=== PATIENT | female | born 1965 | race Caucasian/White ===

== ENCOUNTER → 2017-03-17 | Outpatient (CLI) | payer OTHER ==
--- NOTE | 2017-03-18 07:25 | MR ---
EXAMINATION TYPE: MR cervical spine wo con DATE OF EXAM: 03/17/2017 6:48 PM COMPARISON: CT cervical spine dated 10/10/2016. MR cervical spine dated 03/17/2016. HISTORY: Neck pain, headaches, bonnie hand numbness TECHNIQUE: Multiplanar, multisequence images of the cervical spine were acquired. Anterior cervical fusion has b een performed of C3-C5 in the interim with intervertebral disc spacing is normal and the previously s een disc herniations. C2-C3: No evidence for degenerative disc disease. No disc bulge/herniation or protrusion. No Canal stenosis. Foramina are patent bilaterally. C3-C5: Intervertebral discs have been removed. There is a convex contour of the posterior spinal colu mn border with no evidence of spinal canal stenosis No evidence for degenerative disc disease. No di sc bulge/herniation or protrusion. Foramina are patent bilaterally. C5-C6: Similar to the prior exam there is disc desiccation and a small central disc herniation abutti ng the ventral thecal sac creating mild spinal canal stenosis. Uncovertebral hypertrophy in the broad -based central disc herniation contributing to moderate bilateral neural foraminal stenosis. Additio cody degenerative marrow signal is unchanged from the prior. C6-C7: Degenerative endplate changes are again noted. There is redemonstration of a small central dis c herniation minimally impressing upon the ventral thecal sac creating mild spinal canal stenosis and mild bilateral neural foraminal stenosis. C7-T1: No evidence for degenerative disc disease. No disc bulge/herniation or protrusion. No Canal stenosis. Foramina are patent bilaterally. Cervical segments are intact. There is normal alignment. Mild increased T2 signal is seen at the kandi mely C3-C4 disc interspace as a result of previous disc herniation and now relating to mild myelomalac ia. Craniovertebral junction relationships are within normal limits. IMPRESSION: 1. Interval postsurgical fusion and decompression of levels C3-C5 with minimal myelomalacia remaining within the cervical cord at the [place] C3-C4 disc interspace. 2. Unchanged small central disc herniations at C5-C6 and C6-C7 with resultant mild spinal canal steno sis. 3. Multilevel uncovertebral hypertrophy creating moderate bilateral neural foraminal stenosis at C5-C 6 and mild at C6-C7.
== END | disposition home or self-care (01) ==
LOC: RADMRIMAIN 18:09
PROVIDERS: ATTEND Specialist
DX: M48.02 Spinal stenosis, cervical region (principal); M99.71 Connective tissue and disc stenosis of intervertebral foramina of cervical region; M50.022 Cervical disc disorder at C5-C6 level with myelopathy; M50.023 Cervical disc disorder at C6-C7 level with myelopathy; Z98.1 Arthrodesis status
CPT/HCPCS: 72141

== ENCOUNTER 2017-04-21 09:50 | Day surgery (SDC) | payer OTHER ==
[2017-04-19 11:53] VITALS: BMI 21.6
[~2017-04-21 09:50] MED LIST: LACTATED RINGERS 1,000 ML IV SCH
[2017-04-21 10:59] VITALS: TEMP 98.4
[2017-04-21 11:02] LABS: Glucose,Whole Blood 105 mg/dL (75-99)
[2017-04-21] MEDS ORDERED: LIDOCAINE 1% 20 ML VIAL (10MG/ML) FOR IV START INTRADERMA ONE (11:03)
[2017-04-21] MEDS ORDERED: PROPOFOL 10 MG/ML 20 ML VIAL IV ONE (11:41)
[2017-04-21] MEDS ORDERED: LIDOCAINE 1% INJ 10MG/ML (20 ML MDV) ONE (11:41)
--- NOTE | 2017-04-21 12:07 | P.PCN ---
Date of Procedure: 04/21/17 Preoperative Diagnosis: Postoperative Diagnosis: Procedure(s) Performed: BRIEF HISTORY: Patient is a 52-year-old pleasant white female, scheduled for an elective colonoscopy as a part of screening for colorectal neoplasia. PROCEDURE PERFORMED: Colonoscopy with snare polypectomy PREOPERATIVE DIAGNOSIS: Screening for colon cancer. IV sedation per Anesthesia. PROCEDURE: After informed consent was obtained, the patient, was brought into the endoscopy unit. IV sedation was administered by Anesthesia under continuous monitoring. Digital rectal examination was normal. Initially the Olympus CF- 160 flexible video colonoscope was then inserted in the rectum, gradually advanced into the cecum without any difficulty. Careful examination was performed as the scope was gradually being withdrawn. Ileocecal valve and the appendiceal orifice were visualized and appeared normal. Prep was excellent. In the base of the cecum there was a 1.5 cm broad-based polyp that was removed by snare polypectomy. Mucosa of the cecum, ascending colon appeared normal. In the hepatic flexure there was a 1 polyp removed by snare polypectomy. The rest of the transverse colon, descending colon, sigmoid colon, and rectum appeared normal. Retroflexion was performed in the rectum and no lesions were seen. The patient tolerated the procedure well. IMPRESSION: 1.5 cm broad-based cecal polyp serous was snare polypectomy 1 cm hepatic flexure polyp status post polypectomy RECOMMENDATIONS: Findings of this examination were discussed with the patient as well as a family. She was advised to follow with the biopsy results. If the biopsy shows a tubular adenoma she can have a repeat colonoscopy in 3-5 years. Implants: Indications for Procedure: Operative Findings: Description of Procedure:
[2017-04-21 12:09] VITALS: BP 105/72
[2017-04-21 12:23] VITALS: PULSE 71; RESP 18
== END 2017-04-21 12:38 | disposition home or self-care (01) ==
LOC: ORWHC2ENDO 09:50
PROVIDERS: ATTEND Internal Medicine Gastroenterology
DX: Z12.11 Encounter for screening for malignant neoplasm of colon (principal); D12.0 Benign neoplasm of cecum; D12.3 Benign neoplasm of transverse colon; E11.9 Type 2 diabetes mellitus without complications; E78.5 Hyperlipidemia, unspecified; Z79.4 Long term (current) use of insulin; Z79.84 Long term (current) use of oral hypoglycemic drugs; Z79.899 Other long term (current) drug therapy; Z88.1 Allergy status to other antibiotic agents; Z88.2 Allergy status to sulfonamides; Z72.0 Tobacco use
CPT/HCPCS: 81025; 88305; 45385; J2001; J2704

== ENCOUNTER 2017-08-22 21:47 | Emergency (ER) | payer OTHER ==
[2017-08-22 22:09] VITALS: BP 102/69; PULSE 92; RESP 18; TEMP 97.5
--- NOTE | 2017-08-22 22:32 | ED ---
General Adult HPI - General Chief complaint: Upper Respiratory Infection Stated complaint: Fatigue/Sweats/Congestion Time Seen by Provider: 08/22/17 22:12 Source: patient, RN notes reviewed Mode of arrival: ambulatory Limitations: no limitations - History of Present Illness Initial comments: 52-year-old female with history diabetes presents with a one-month history of cough and nasal congestion and nasal drainage. Patient also reports some right ear fullness. She's had a mild sore throat over this time as well. She has been using Robitussin and Sudafed with minimal relief. She was unable to see her primary care physician. Denies chest pain or significant shortness of breath. No history of asthma or COPD. No nausea vomiting or diarrhea. No rash. Patient has had some fever and chills as well as night sweats, however she believes she is going through menopause. - Related Data Home Medications Medication Instructions Recorded Confirmed Atorvastatin [Lipitor] 20 mg PO DAILY 04/19/17 08/22/17 Dapagliflozin Propanediol [Farxiga] 10 mg PO QAM 04/19/17 08/22/17 Desvenlafaxine Succinate [Pristiq] 50 mg PO DAILY 04/19/17 08/22/17 Diazepam [Valium] 2 mg PO DAILY PRN 04/19/17 08/22/17 Gabapentin [Neurontin] 100 mg PO BID 04/19/17 08/22/17 Insulin Aspart [NovoLOG] 5 units INJ TID-W/MEALS 04/19/17 08/22/17 Insulin Glargine [Lantus] 25 units INJ QAM 04/19/17 08/22/17 Linagliptin [Tradjenta] 5 mg PO QAM 04/19/17 08/22/17 Meloxicam 15 mg PO DAILY PRN 04/19/17 08/22/17 Insulin Aspart [NovoLOG] See Protocol SQ AC-TID PRN 08/22/17 08/22/17 metFORMIN HCL 1,000 mg PO BID 08/22/17 08/22/17 Previous Rx's Medication Instructions Recorded Amoxicillin/Potassium Clav 1 tab PO Q12HR #20 tab 08/22/17 [Augmentin 875-125 Tablet] Allergies Allergy/AdvReac Type Severity Reaction Status Date / Time sulfamethoxazole Allergy Rash/Hives Verified 08/22/17 22:25 [From Bactrim] trimethoprim [From Bactrim] Allergy Rash/Hives Verified 08/22/17 22:25 Review of Systems ROS Statement: Those systems with pertinent positive or pertinent negative responses have been documented in the HPI. ROS Other: All systems not noted in ROS Statement are negative. Past Medical History Past Medical History: Diabetes Mellitus, Hyperlipidemia History of Any Multi-Drug Resistant Organisms: None Reported Past Surgical History: Appendectomy, Back Surgery, Orthopedic Surgery, Tubal Ligation Past Anesthesia/Blood Transfusion Reactions: No Reported Reaction Past Psychological History: Anxiety Smoking Status: Current every day smoker Past Alcohol Use History: None Reported Past Drug Use History: None Reported - Past Family History Mother Family Medical History: No Reported History General Exam Limitations: no limitations General appearance: alert, in no apparent distress Head exam: Present: atraumatic, normocephalic Eye exam: Present: normal appearance, PERRL ENT exam: Present: normal exam, mucous membranes moist, other (Visualized portion of the right TM is within normal limits, there is significant amount of cerumen in the external canal, left TM normal. There is no pharyngeal erythema or tonsillar swelling) Neck exam: Absent: tenderness, meningismus Respiratory exam: Present: normal lung sounds bilaterally. Absent: respiratory distress, wheezes, rales, rhonchi Cardiovascular Exam: Present: regular rate, normal rhythm GI/Abdominal exam: Present: soft. Absent: distended, tenderness Extremities exam: Present: normal inspection, normal capillary refill. Absent: pedal edema Neurological exam: Present: alert, oriented X3. Absent: CN II-XII intact, motor sensory deficit Psychiatric exam: Present: normal affect, normal mood Skin exam: Present: warm, dry, intact. Absent: rash Course Vital Signs 08/22/17 22:05 Temperature 97.5 F L Pulse Rate 92 Respiratory 18 Rate Blood Pressure 102/69 O2 Sat by Pulse 98 Oximetry Medical Decision Making - Medical Decision Making 52-year-old female presenting with a one-month history of nasal congestion, sore throat and cough. Chest x-ray is obtained. There is no pneumonia or infiltrate. Patient's vital signs are stable. No pharyngeal erythema or tonsillar swelling. She does have nasal congestion. She has been using Flonase as needed. She is instructed to use this medication daily. She will be prescribed Augmentin for chronic sinusitis. Patient will follow-up with her primary care physician. Disposition Clinical Impression: Sinusitis Disposition: HOME SELF-CARE Condition: Good Instructions: Allergies (ED), Sinusitis (ED) Prescriptions: Amoxicillin/Potassium Clav [Augmentin 875-125 Tablet] 1 tab PO Q12HR #20 tab Referrals: Vladislav Pereira MD [Primary Care Provider] - 1-2 days Time of Disposition: 23:00
--- NOTE | 2017-08-22 22:44 | XR ---
EXAMINATION TYPE: XR chest 2V DATE OF EXAM: 08/22/2017 COMPARISON: NONE HISTORY: Cough TECHNIQUE: Frontal and lateral views of the chest are obtained. FINDINGS: Heart and mediastinum are normal. Lungs are clear. Diaphragm is normal. Bony thorax is int act. IMPRESSION: Normal chest
== END 2017-08-22 23:07 | disposition home or self-care (01) ==
LOC: EC 21:47
DX: J32.9 Chronic sinusitis, unspecified (principal); E11.9 Type 2 diabetes mellitus without complications; E78.5 Hyperlipidemia, unspecified; F41.9 Anxiety disorder, unspecified; F17.200 Nicotine dependence, unspecified, uncomplicated; Z79.4 Long term (current) use of insulin; Z79.1 Long term (current) use of non-steroidal anti-inflammatories (NSAID); Z79.899 Other long term (current) drug therapy; Z88.2 Allergy status to sulfonamides
CPT/HCPCS: 71020; 99283

== ENCOUNTER → 2017-10-02 | Outpatient (CLI) | payer OTHER ==
--- NOTE | 2017-10-04 08:20 | MM ---
Reason for exam: screening (asymptomatic). Last mammogram was performed 1 year and 7 months ago. Physical Findings: A clinical breast exam by your physician is recommended on an annual basis and results should be correlated with mammographic findings. MG Screening Mammo w CAD Bilateral CC and MLO view(s) were taken. Prior study comparison: March 02, 2016, bilateral MG screening mammo w CAD. The breast tissue is heterogeneously dense. This may lower the sensitivity of mammography. No significant changes when compared with prior studies. ASSESSMENT: Negative, BI-RAD 1 RECOMMENDATION: Routine screening mammogram of both breasts in 1 year.
== END | disposition home or self-care (01) ==
LOC: RADMAMWWP 16:10
PROVIDERS: ATTEND Family Medicine
DX: Z12.31 Encounter for screening mammogram for malignant neoplasm of breast (principal)

== ENCOUNTER → 2018-08-24 | Outpatient (CLI) | payer OTHER | END | disposition home or self-care (01) | LOC: LABWHC1 10:24 | PROVIDERS: ATTEND Internal Medicine | DX: E11.65 Type 2 diabetes mellitus with hyperglycemia (principal) | CPT/HCPCS: 36415; 82947; 84681 ==

== ENCOUNTER 2018-10-07 19:03 | Emergency (ER) | payer OTHER ==
[2018-10-07 19:06] VITALS: BP 139/87; PULSE 88; RESP 20; TEMP 98.4
--- NOTE | 2018-10-07 19:29 | ED ---
General Adult HPI - General Chief complaint: Recheck/Abnormal Lab/Rx Stated complaint: Facial Swelling Time Seen by Provider: 10/07/18 19:15 Source: patient Mode of arrival: ambulatory Limitations: no limitations - History of Present Illness Initial comments: 53-year-old female presenting with left facial swelling that began today. - Related Data Home Medications Medication Instructions Recorded Confirmed Atorvastatin [Lipitor] 20 mg PO DAILY 04/19/17 08/22/17 Dapagliflozin Propanediol [Farxiga] 10 mg PO QAM 04/19/17 08/22/17 Desvenlafaxine Succinate [Pristiq] 50 mg PO DAILY 04/19/17 08/22/17 Diazepam [Valium] 2 mg PO DAILY PRN 04/19/17 08/22/17 Gabapentin [Neurontin] 100 mg PO BID 04/19/17 08/22/17 Insulin Aspart [NovoLOG] 5 units INJ TID-W/MEALS 04/19/17 08/22/17 Insulin Glargine [Lantus] 25 units INJ QAM 04/19/17 08/22/17 Linagliptin [Tradjenta] 5 mg PO QAM 04/19/17 08/22/17 Meloxicam 15 mg PO DAILY PRN 04/19/17 08/22/17 Insulin Aspart [NovoLOG] See Protocol SQ AC-TID PRN 08/22/17 08/22/17 metFORMIN HCL 1,000 mg PO BID 08/22/17 08/22/17 Previous Rx's Medication Instructions Recorded Amoxicillin/Potassium Clav 1 tab PO Q12HR #20 tab 08/22/17 [Augmentin 875-125 Tablet] Penicillin V Potassium [Pen Vee K] 500 mg PO Q6HR 7 Days #28 tablet 10/07/18 Allergies Allergy/AdvReac Type Severity Reaction Status Date / Time sulfamethoxazole Allergy Rash/Hives Verified 10/07/18 19:06 [From Bactrim] trimethoprim [From Bactrim] Allergy Rash/Hives Verified 10/07/18 19:06 Review of Systems ROS Statement: Those systems with pertinent positive or pertinent negative responses have been documented in the HPI. ROS Other: All systems not noted in ROS Statement are negative. Past Medical History Past Medical History: Diabetes Mellitus, Hyperlipidemia History of Any Multi-Drug Resistant Organisms: None Reported Past Surgical History: Appendectomy, Back Surgery, Orthopedic Surgery, Tubal Ligation Past Anesthesia/Blood Transfusion Reactions: No Reported Reaction Past Psychological History: Anxiety Smoking Status: Current every day smoker Past Alcohol Use History: None Reported Past Drug Use History: None Reported - Past Family History Mother Family Medical History: No Reported History General Exam Limitations: no limitations Course Vital Signs 10/07/18 19:04 Temperature 98.4 F Pulse Rate 88 Respiratory 20 Rate Blood Pressure 139/87 O2 Sat by Pulse 99 Oximetry Disposition Clinical Impression: Left facial swelling Disposition: HOME SELF-CARE Condition: Good Instructions: Parotid Duct Obstruction (ED), Sialoadenitis (ED), Gingivostomatitis (ED) Prescriptions: Penicillin V Potassium [Pen Vee K] 500 mg PO Q6HR 7 Days #28 tablet Is patient prescribed a controlled substance at d/c from ED?: No
== END 2018-10-07 19:36 | disposition home or self-care (01) ==
LOC: EC 19:03
DX: R22.0 Localized swelling, mass and lump, head (principal); K08.89 Other specified disorders of teeth and supporting structures; E11.9 Type 2 diabetes mellitus without complications; E78.5 Hyperlipidemia, unspecified; F41.9 Anxiety disorder, unspecified; F17.200 Nicotine dependence, unspecified, uncomplicated; Z90.49 Acquired absence of other specified parts of digestive tract; Z98.51 Tubal ligation status; Z98.890 Other specified postprocedural states; Z79.4 Long term (current) use of insulin; Z79.899 Other long term (current) drug therapy
CPT/HCPCS: 99283

== ENCOUNTER → 2019-02-11 | Outpatient (CLI) | payer OTHER ==
--- NOTE | 2019-02-11 14:39 | XR ---
EXAMINATION TYPE: XR chest 2V DATE OF EXAM: 02/11/2019 COMPARISON: 08/22/2017 HISTORY: Cough TECHNIQUE: Frontal and lateral views of the chest are obtained. FINDINGS: There is no focal air space opacity, pleural effusion, or pneumothorax seen. Minimal linea r density is seen along the bronchus intermedius. The cardiac silhouette size is within normal limits . The osseous structures are intact. IMPRESSION: Minimal linear peribronchial cuffing along the bronchus intermedius can be seen in bronc hitis or reactive airway disease.
== END | disposition home or self-care (01) ==
LOC: RADXRMAIN 14:11
PROVIDERS: ATTEND Physician Assistant
DX: J98.09 Other diseases of bronchus, not elsewhere classified (principal)
CPT/HCPCS: 71046

== ENCOUNTER 2019-03-09 09:01 | Emergency (ER) | payer OTHER ==
[2019-03-09 09:07] VITALS: BP 138/84; PULSE 71; RESP 18; TEMP 98
[2019-03-09] MEDS ORDERED: HYDROcodone/APAP 5-325MG 1 EACH TAB PO STA (09:19)
[2019-03-09] MEDS ORDERED: CYCLOBENZAPRINE 5 MG TAB PO STA (09:19)
--- NOTE | 2019-03-09 09:27 | ED ---
Neck Injury/Pain HPI - General Chief Complaint: Neck Pain/Injury Stated Complaint: shoulder/neck pain Time Seen by Provider: 03/09/19 09:08 Source: patient, RN notes reviewed Mode of arrival: ambulatory Limitations: no limitations - History of Present Illness Initial Comments: 54-year-old female presents emergency room chief complaint of left shoulder, neck discomfort. Patient states she woke up on with some discomfort the top of her shoulder. Patient states is worse with movement. Patient's had prior cervical surgery but states that she's had no trauma. Patient states she does smoke daily neck states it's worse when she does get relief with stretching and heat but does not resolve. Patient was seen at [facility] and was given steroids. Patient states that steroids have no elevated blood sugar which is a known diabetic. Patient states that she does have an uncontrolled this time. Patient denies any focal weakness. Denies any paresthesias. Denies any trauma no fever or chills. - Related Data Home Medications Medication Instructions Recorded Confirmed Atorvastatin [Lipitor] 20 mg PO DAILY 04/19/17 08/22/17 Dapagliflozin Propanediol [Farxiga] 10 mg PO QAM 04/19/17 08/22/17 Desvenlafaxine Succinate [Pristiq] 50 mg PO DAILY 04/19/17 08/22/17 Diazepam [Valium] 2 mg PO DAILY PRN 04/19/17 08/22/17 Gabapentin [Neurontin] 100 mg PO BID 04/19/17 08/22/17 Insulin Aspart [NovoLOG] 5 units INJ TID-W/MEALS 04/19/17 08/22/17 Insulin Glargine [Lantus] 25 units INJ QAM 04/19/17 08/22/17 Linagliptin [Tradjenta] 5 mg PO QAM 04/19/17 08/22/17 Meloxicam 15 mg PO DAILY PRN 04/19/17 08/22/17 INSULIN ASPART (NovoLOG) [NovoLOG] See Protocol SQ AC-TID PRN 08/22/17 08/22/17 metFORMIN HCL 1,000 mg PO BID 08/22/17 08/22/17 Previous Rx's Medication Instructions Recorded Amoxicillin/Potassium Clav 1 tab PO Q12HR #20 tab 08/22/17 [Augmentin 875-125 Tablet] Penicillin V Potassium [Pen Vee K] 500 mg PO Q6HR 7 Days #28 tablet 10/07/18 Cyclobenzaprine [Flexeril] 5 mg PO TID PRN #15 tablet 03/09/19 Hydrocodone/Acetaminophen [[place] 1 tab PO Q6HR PRN #12 tab 03/09/19 5-325] Allergies Allergy/AdvReac Type Severity Reaction Status Date / Time sulfamethoxazole Allergy Rash/Hives Verified 03/09/19 09:07 [From Bactrim] trimethoprim [From Bactrim] Allergy Rash/Hives Verified 03/09/19 09:07 Review of Systems ROS Statement: Those systems with pertinent positive or pertinent negative responses have been documented in the HPI. ROS Other: All systems not noted in ROS Statement are negative. Past Medical History Past Medical History: Diabetes Mellitus, Hyperlipidemia History of Any Multi-Drug Resistant Organisms: None Reported Past Surgical History: Appendectomy, Back Surgery, Orthopedic Surgery, Tubal Ligation Past Anesthesia/Blood Transfusion Reactions: No Reported Reaction Past Psychological History: Anxiety Smoking Status: Current every day smoker Past Alcohol Use History: None Reported Past Drug Use History: None Reported - Past Family History Mother Family Medical History: No Reported History General Exam Limitations: no limitations General appearance: alert, in no apparent distress Head exam: Present: atraumatic, normocephalic, normal inspection Eye exam: Present: normal appearance, PERRL, EOMI. Absent: scleral icterus, conjunctival injection, periorbital swelling ENT exam: Present: normal exam, normal oropharynx, mucous membranes moist, TM's normal bilaterally, normal external ear exam Neck exam: Present: tenderness (Tenderness over the left trapezius region no cervical paraspinal or vertebral tenderness), full ROM. Absent: normal inspection (Anterior scar noted), meningismus, lymphadenopathy Respiratory exam: Present: normal lung sounds bilaterally. Absent: respiratory distress, wheezes, rales, rhonchi, stridor Cardiovascular Exam: Present: regular rate, normal rhythm, normal heart sounds. Absent: systolic murmur, diastolic murmur, rubs, gallop, clicks GI/Abdominal exam: Present: soft, normal bowel sounds. Absent: distended, tenderness, guarding, rebound, rigid Neurological exam: Present: alert, oriented X3, CN II-XII intact, reflexes normal. Absent: motor sensory deficit Skin exam: Present: warm, dry, intact, normal color. Absent: rash Course Vital Signs 03/09/19 09:04 Temperature 98.0 F Pulse Rate 71 Respiratory 18 Rate Blood Pressure 138/84 O2 Sat by Pulse 98 Oximetry Medical Decision Making - Medical Decision Making 54-year-old female presented for cervical, shoulder pain. Patient has muscle spasm noted of the left trapezius region. Patient we given pain medication, muscle relaxer. Patient will follow-up with her private surgeon. Return parameters discussed. Disposition Clinical Impression: Trapezius muscle spasm Disposition: HOME SELF-CARE Condition: Stable Instructions (If sedation given, give patient instructions): Spasmodic Torticollis (ED), Muscle Spasm (ED) Additional Instructions: Please return to the Emergency Department if symptoms worsen or any other concerns. Prescriptions: Cyclobenzaprine [Flexeril] 5 mg PO TID PRN #15 tablet PRN Reason: Muscle Spasm Hydrocodone/Acetaminophen [[place] 5-325] 1 tab PO Q6HR PRN #12 tab PRN Reason: Pain Is patient prescribed a controlled substance at d/c from ED?: Yes When asked, does pt state using other controlled substances?: Yes If prescribed controlled substance>3 days was MAPS reviewed?: Prescribed <3 Days If opioid is for acute pain is fill amount 7 days or less?: Yes If Rx opioid, was Start Talking consent form obtained?: Yes Referrals: Joao Byrd MD [Primary Care Provider] - 1-2 days Time of Disposition: :27
== END 2019-03-09 10:04 | disposition home or self-care (01) ==
LOC: EC 09:01
DX: M62.838 Other muscle spasm (principal); E11.9 Type 2 diabetes mellitus without complications; E78.5 Hyperlipidemia, unspecified; F17.200 Nicotine dependence, unspecified, uncomplicated; Z88.2 Allergy status to sulfonamides; Z79.4 Long term (current) use of insulin; Z79.899 Other long term (current) drug therapy; Z98.890 Other specified postprocedural states
CPT/HCPCS: 99283

== ENCOUNTER → 2019-03-22 | Outpatient (CLI) | payer OTHER ==
[2019-03-22 16:20] LABS: Albumin 4.2 g/dL (3.80-4.90); Albumin/Globulin Ratio 2.33 (1.60-3.17); Anion Gap 5.6 mmol/L (4.00-12.00); Calcium 9.2 mg/dL (8.7-10.3); Carbon Dioxide 27.4 mmol/L (21.6-31.8); Globulin 1.8 g/dL (1.6-3.3); LDL Cholesterol,Calculated 131.6 mg/dL (0.0-131.0); Potassium 4.5 mmol/L (3.5-5.5); Total Bilirubin 0.4 mg/dL (0.2-1.2); VLDL Calculation 22.4 mg/dL (5.00-40.00)
[2019-03-22 18:50] LABS: Hemoglobin A1C 8.8 % (4.0-6.0)
== END | disposition home or self-care (01) ==
LOC: LABWHC1 10:24
PROVIDERS: ATTEND Internal Medicine
DX: E10.65 Type 1 diabetes mellitus with hyperglycemia (principal); E78.5 Hyperlipidemia, unspecified
CPT/HCPCS: 36415; 80053; 80061; 82043; 82570; 83036

== ENCOUNTER → 2019-05-13 | Outpatient (CLI) | payer OTHER ==
--- NOTE | 2019-05-13 11:14 | XR ---
EXAMINATION TYPE: XR wrist complete LT DATE OF EXAM: 05/13/2019 COMPARISON: NONE HISTORY: 54-year-old female with left wrist pain TECHNIQUE: 4 views FINDINGS: Midcarpal compartment is intact. Ossific density interposed at the ulnar carpal joint measuring 3 mm. There is an additional curvilinear density measuring 2 mm along the ulnar-sided base of the styloid process. Otherwise, no acute fracture, subluxation, or dislocation. IMPRESSION: 1. 3 mm ossicle interposed at the ulnocarpal joint could represent an accessory ossicle or chronic un united fracture fragment as a sequela of remote injury. 2. Additional 2 mm bony fragment adjacent to the ulnar-sided base of the styloid process. Suspected s ubacute to chronic chip fracture.
== END | disposition home or self-care (01) ==
LOC: RADXRMAIN 10:13
PROVIDERS: ATTEND Internal Medicine
DX: M25.532 Pain in left wrist (principal)

== ENCOUNTER → 2019-06-27 | Outpatient (CLI) | payer OTHER ==
[2019-06-27 11:48] VITALS: BP 116/70; PULSE 66; RESP 16
--- NOTE | 2019-06-27 12:19 | P.PAINCN ---
History of Present Illness - Reason for Consult Consult date: 06/27/19 - History of Present Illness This is initial consultation visit for this 54 years old female with a chronic history of severe neck pain with radiation to the upper extremity associated with numbness and tingling sensation, mainly to the left upper extremity, and to the left hand, and occasional weakness in her left upper extremity, patient reported that she had cervical fusion surgery done in 2015, at C3-4, C4 5, she did fairly well after the surgery until recently, in February 2019 she started having the symptoms described above, she denies any fever or night sweats she denies any change in the bowel movements or urination, and currently she is able to use her upper extremity without any difficulty but the intensity of the pain and the numbness, interfering with the quality of life, she has done physical therapy without any significant benefit Past Medical History Past Medical History: Diabetes Mellitus, Hyperlipidemia Additional Past Medical History / Comment(s): left arm pain w/left hand numbness History of Any Multi-Drug Resistant Organisms: None Reported Past Surgical History: Appendectomy, Back Surgery, Tubal Ligation Additional Past Surgical History / Comment(s): cervical fusion level 2,3,4 Past Anesthesia/Blood Transfusion Reactions: No Reported Reaction Smoking Status: Current every day smoker - Past Family History Mother Family Medical History: No Reported History Medications and Allergies Home Medications Medication Instructions Recorded Confirmed Type Ibuprofen [Motrin] 800 mg PO TID PRN 06/25/19 06/25/19 History Insulin Lispro [Admelog] 1 dose SQ CONTINUOUS 06/25/19 06/25/19 History tiZANidine HCL [Zanaflex] 4 mg PO BID PRN 06/25/19 06/25/19 History Allergies Allergy/AdvReac Type Severity Reaction Status Date / Time Penicillins Allergy Rash/Hives Verified 06/25/19 11:30 shellfish derived [Shellfish] Allergy Swelling Verified 06/25/19 11:29 sulfamethoxazole Allergy Rash/Hives Verified 06/25/19 11:29 [From Bactrim] trimethoprim [From Bactrim] Allergy Rash/Hives Verified 06/25/19 11:29 Physical Exam Vitals: Vital Signs Pulse Resp BP Pulse Ox 06/27/19 11:38 66 16 116/70 98 REVIEW OF ORGAN SYSTEMS: CONSTITUTIONAL: No fevers or chills. No recent weight loss. EYES: History of troubles with vision. No glasses. HEENT: No difficulties with hearing. No nosebleeds. No di fficulty swallowing. RESPIRATORY: Past pneumonia. Denies any troubles with breathing or dyspnea on exertion. CARDIOVASCULAR: Denies any chest pain, palpitations, or recent heart attacks. GASTROINTESTINAL: Denies fatty food intolerance. Has change in bowel habits and gas bloat. GENITOURINARY: Denies any blood in urine. Has increased urinary frequency. NEUROLOGICAL: Reports numbness and tingling along the distal extremities. No seizure disorders or headaches. MUSCULOSKELETAL: Has back pain, stiffness or joint arthritis. SKIN: Past t skin cancer. No rash. PSYCHIATRIC: Denies current depression or suicidal tho ughts. ENDOCRINE: Denies current thyroid disorders. Had insulin dependent. Assessment. HEME/LYMPHATIC: Denies any lumps and bumps around the neck. History of deep venous thrombosis. ALLERGY/IMMUNOLOGY: No immunoglobulin therapy. No immune deficiencies. BREAST: Denies current breast lumps, pain or nipple di scharge. Physical Examinations : Constitutiona : Cooperative , not in acute distress . HEENT : nech : supple , no Lymphadenopathy , normal thyroid size . eyes : no ptosis , no icterus, no photophobia . ENT : normal of hearing , normal oropharynx , no Thrush . Respiratory : Chest clear to auscultations Bilaterally , no wheezing , no Rhonchi . Cardiovascula : regular rate and rhythem , S1 , S2 , no S3 , no S4. Gastrointestina : abdomen soft no tenderness , bowel sounds , no organomegally . Genitourinary : Defferred . neurologic : Cranial nerve II to XII intact , no focal neurological deffecit . psychatric : alert , oriented X 3 , appropriate affect , intact judgment and insight . Lymphatic : no Lymphadenopathy . musculoskeltal : Cervical Spine motor stregnth in the deltoid and biceps, normal right side , normal Left side motor stregnth biceps and the wrist extensors normal right side ,normal left side . motor stregnth in the triceps muscle . normal Right side , normal Left side Severe tenderness over the left trapezius muscle deep tendon reflexes normal at the biceps , normal at Brachioradialis , normal at triceps. cervical facet loading test: Positive Bilaterally Spurling test positive bilaterally. Neck distraction test positive bilaterally. Nancy sign positive bilaterally. Lumber spine moter stegnth lower extremities ,thigh and legs 5/5 Right side , 5/5 Left side Results Labs: Assessment and plan=1-cervical radiculopathy. 2-cervical herniated disc disease. 3-myofascial pain syndrome left side trapezius muscle. Patient could benefit from cervical epidural steroid injection at C7-T1 levels under fluoroscopy guidance, and the same time we can do trigger point injection of the left trapezius muscle Comments: MRI of the cervical spine done 03/18/2017 [facility]= C3 to C5 cervical fusion and there is disc herniation at C5 6 and C6 7 and there is foraminal stenosis, and multilevel lumbar facet hypertrophy PQRS Measure Charge Sheet Measure #130: Documentation of Current Meds in Medical Chart: Patient's medications documented in chart Measure #226: Tobacco Use: Screen & Cessation Intervention: Pt screened for tobacco use AND intervention given Measure #111: Pneumonia Vaccination: Pneumococcal vaccine NOT administered or previously given Measure #47: Advance Care Plan: Advance care planning discussed & documented, pt chose/unable to give Measure #412: Opioid Treatment Agreement: No documentation of signed opioid treatment agreement Measure #408: Opioid Therapy Follow-up Evaluation: Patient had NO f/u eval minimum every 3 months during opioid therapy Measure #317: Preventitive Care & Scrn High Bld Press & F/U: Normal blood pressure, f/u not required Measure #128: Body Mass Index (BMI) Screening & Follow-up: BMI documented within normal parameters Measure #131: Pain Assessment & Follow-up: Pain positive & plan documented, Follow-up scheduled Measure #431: Unhealthy Alcohol Use Preventative Care & Scrn: Patient identified as unhealthy alcohol user; counseling given PQRS Narrative: Smoking Status Current every day smoker Blood Pressure 116/70 Pain Intensity [Left Arm] 8 Scale Used Numeric (1 - 10) Hx Alcohol Use (MH) No Home Medications: Ambulatory Orders Ibuprofen [Motrin] 800 mg PO TID PRN 06/25/19 Insulin Lispro [Admelog] 1 dose SQ CONTINUOUS 06/25/19 tiZANidine HCL [Zanaflex] 4 mg PO BID PRN 06/25/19
== END ==
LOC: PNWHC3 11:29
PROVIDERS: ATTEND Specialist
DX: M50.10 Cervical disc disorder with radiculopathy, unspecified cervical region (principal); M79.18 Myalgia, other site; F17.200 Nicotine dependence, unspecified, uncomplicated; Z79.1 Long term (current) use of non-steroidal anti-inflammatories (NSAID); Z79.4 Long term (current) use of insulin; Z79.899 Other long term (current) drug therapy; Z88.0 Allergy status to penicillin; Z88.2 Allergy status to sulfonamides; Z91.013 Allergy to seafood
CPT/HCPCS: 99211

== ENCOUNTER 2019-07-04 06:50 | Day surgery (SDC) | payer OTHER ==
[2019-07-02 11:57] VITALS: BMI 22.7
[2019-07-04 07:19] VITALS: TEMP 97
[2019-07-04] MEDS: LACTATED RINGERS 1,000 ML IV SCH ×2 (07:29→07:34)
[2019-07-04 07:32] LABS: Glucose,Whole Blood 149 mg/dL (75-99)
[2019-07-04 07:59] VITALS: RESP 18
[2019-07-04] MEDS ORDERED: IV FLUID CONTINUATION 1,000 ML IV ONE (08:06)
--- NOTE | 2019-07-04 08:07 | FL ---
EXAMINATION TYPE: FL guided pain mgmt statistic DATE OF EXAM: 07/04/2019 CLINICAL HISTORY: Back pain. TECHNIQUE: Fluoroscopy. COMPARISON: None. FINDINGS: Fluoroscopic guidance was provided during pain relief procedure performed by Dr. Varner . A total of 3 seconds of fluoroscopic time was utilized during the procedure and 2 spot images are acquired. Images acquired shows needle localization of the cervical spine. IMPRESSION: As Above.
[2019-07-04 08:16] VITALS: BP 123/67; PULSE 67
== END 2019-07-04 08:28 | disposition home or self-care (01) ==
LOC: ORPAIN 06:50
PROVIDERS: ATTEND Specialist
DX: M50.30 Other cervical disc degeneration, unspecified cervical region (principal); M79.18 Myalgia, other site; Z79.4 Long term (current) use of insulin; Z96.41 Presence of insulin pump (external) (internal); Z98.51 Tubal ligation status; Z88.2 Allergy status to sulfonamides; Z88.0 Allergy status to penicillin; Z91.013 Allergy to seafood
CPT/HCPCS: 20552; 62321; J2250; J1100; J3010

== ENCOUNTER 2019-07-31 08:46 | Day surgery (SDC) | payer OTHER ==
[2019-07-31 09:19] VITALS: TEMP 97.4
[2019-07-31] MEDS ORDERED: LIDOCAINE 1% 20 ML VIAL (10MG/ML) FOR IV START INTRADERMA ONE (09:25)
[2019-07-31 09:34] LABS: Glucose,Whole Blood 115 mg/dL (75-99)
[2019-07-31] MEDS ORDERED: IV FLUID CONTINUATION 1,000 ML IV ONE (09:59)
[2019-07-31 10:02] VITALS: PULSE 62; RESP 16
[2019-07-31 10:13] LABS: Glucose,Whole Blood 107 mg/dL (75-99)
[2019-07-31 10:17] VITALS: BP 97/58
--- NOTE | 2019-07-31 11:03 | FL ---
EXAMINATION TYPE: FL guided pain mgmt statistic DATE OF EXAM: 07/31/2019 CLINICAL HISTORY: Neck pain. TECHNIQUE: Fluoroscopy. COMPARISON: None. FINDINGS: Fluoroscopic guidance was provided during pain relief procedure performed by Dr. Kevin . A total of 2 seconds of fluoroscopic time was utilized during the procedure and 1 spot image are acq uired. Image acquired shows needle localization at the cervical thoracic junction. IMPRESSION: As Above.
--- NOTE | 2019-07-31 11:57 | P.PCN ---
Date of Procedure: 07/31/19 Description of Procedure: PREOPERATIVE DIAGNOSIS: Cervical radiculopathy Cervical degenerative disc disease POSTOPERATIVE DIAGNOSIS: Cervical radiculopathy Cervical degenerative disc disease PROCEDURE Cervical Epidural steroid injection under fluoroscopic guidance at the C7-T1 interspace. ANESTHESIA: Local with 1% lidocaine 3 ml and IV sedation with Versed 2 mg EBL: Minimal PROCEDURE INDICATION: The patient with cervical radicular symptoms unresponsive to conservative treatment. She reports good benefit from her last cervical epidural steroid injection. PROCEDURE DESCRIPTION / TECHNIQUE: The patient was seen and identified in the preoperative area. Risks, benefits, complications including but not limited to infections ,bleeding ,allergic reaction to the medications ,nerve damage and incomplete pain relief, and alternatives were discussed with the patient. The patient agreed to proceed with the procedure and signed the consent. IV was started, and vital signs were stable. Patient was taken to the OR and time out was completed. The patient was placed in the prone position on procedure table and a pillow was placed under the chest area.. The cervical area was prepped and draped in the usual sterile fashion. Conscious sedation was used during the procedure to decrease patients anxiety. Vital signs was monitered during the entire procedure. Using anterior-posterior fluoroscopy, the C7-T1 interlaminar space was identified and the skin over this site was marked and then infiltrated with 1% lidocaine subcutaneously. Subsequently, a 20-gauge Tuohy epidural needle was inserted and advanced toward the epidural space using the loss of resistance technique and guided by AP and lateral fluoroscopy. The correct needle position in the epidural space was verified with the injection of contrast and observing an excellent epidurogram with the epidural spread of the dye, after negative aspiration for blood and CSF and in the absence of paresthesias. Again after negative aspiration, a 4 ml mixture containing 20 mg of Dexamethasone was injected. Needle was withdrawn intact, skin was cleansed, and bandages were applied. COMPLICATIONS: None DISPOSITION / PLANS: The patient was placed in a supine position and transferred to the recovery area in a stable condition for observation. There was no evidence of lower extremity motor or sensory deficit after the procedure. Patient was discharged from the recovery room after meeting discharge criteria. Home discharge instructions were given to the patient by the staff. The patient was reexamined prior to discharge. The patient will schedule a follow up in the clinic in 2-4 weeks.
== END 2019-07-31 10:24 | disposition home or self-care (01) ==
LOC: ORPAIN 08:46
PROVIDERS: ATTEND Pain Medicine Pain Medicine
DX: M50.10 Cervical disc disorder with radiculopathy, unspecified cervical region (principal); E11.9 Type 2 diabetes mellitus without complications; Z88.2 Allergy status to sulfonamides; Z88.0 Allergy status to penicillin; Z91.013 Allergy to seafood; Z91.048 Other nonmedicinal substance allergy status; Z98.51 Tubal ligation status
CPT/HCPCS: 62321; J2250; J1030; J3010

== ENCOUNTER → 2019-08-28 | Outpatient (CLI) | payer OTHER ==
[2019-08-28 21:56] LABS: Hemoglobin A1C 8.8 % (4.0-6.0)
== END | disposition home or self-care (01) ==
LOC: LABWHC1 12:34
PROVIDERS: ATTEND Internal Medicine
DX: E10.65 Type 1 diabetes mellitus with hyperglycemia (principal)
CPT/HCPCS: 36415; 83036

== ENCOUNTER 2019-12-13 10:53 | Day surgery (SDC) | payer OTHER ==
[2019-12-09 14:33] VITALS: BMI 24.2
[~2019-12-13 10:53] MED LIST changes: +DEXAMETHASONE SOD PHOSPHATE 10 MG/ML 1 ML VIAL IV ONE; +HYDROmorphone 0.5 MG/0.5 ML SYRINGE IVP PRN; +LIDOCAINE 1% 20 ML VIAL (10MG/ML) FOR IV START INTRADERMA PRN; +Pre Op ABX Message 1 EACH MISC MISCELLANE ONE
[2019-12-13] MEDS: ONDANSETRON 4 MG/2 ML VIAL IVP ONE ×2 (11:45→11:52)
[2019-12-13 11:57] LABS: Glucose,Whole Blood 106 mg/dL (75-99)
[2019-12-13 11:59] VITALS: RESP 16; TEMP 98.2
[2019-12-13 13:34] LABS: Glucose,Whole Blood 67 mg/dL (75-99)
[2019-12-13] MEDS ORDERED: fentaNYL (PF) 50 MCG/ML 2 ML AMP ONE (13:53)
[2019-12-13] MEDS ORDERED: PROPOFOL 10 MG/ML 20 ML VIAL IV ONE (13:53)
[2019-12-13] MEDS ORDERED: KETAMINE 10 MG/ML 20 ML VIAL ONE (13:53)
[2019-12-13] MEDS ORDERED: MIDAZOLAM 2 MG/2 ML VIAL ONE (13:53)
[2019-12-13 14:14] LABS: Glucose,Whole Blood 135 mg/dL (75-99)
[2019-12-13] MEDS ORDERED: BUPIVACAINE (PF) 0.5% 30 ML VIAL SQ ONE (14:19)
[2019-12-13] MEDS ORDERED: LIDOCAINE 2% (PF) 20 MG/ML 10 ML AMP SQ ONE (14:19)
[2019-12-13] MEDS ORDERED: LIDOCAINE 1%-EPI 1:100,000 20 ML VIAL SQ ONE ×2 (14:20)
[2019-12-13 14:30] LABS: Glucose,Whole Blood 121 mg/dL (75-99)
[2019-12-13 15:09] LABS: Glucose,Whole Blood 124 mg/dL (75-99)
[2019-12-13 15:15] VITALS: BP 106/59; PULSE 80
--- NOTE | 2019-12-19 19:32 | P.OP ---
Date of Procedure: 12/13/19 Preoperative Diagnosis: 1. Right de Quervain's tenosynovitis 2. Right wrist ganglion cyst Postoperative Diagnosis: 1. Right de Quervain's tenosynovitis 2. Right wrist ganglion cyst Procedure(s) Performed: 1. First dorsal compartment release - right wrist 2. Excision of ganglion cyst - right wrist Anesthesia: MAC, local Surgeon: Luis Merino Estimated Blood Loss (ml): 1 Pathology: none sent Condition: stable Disposition: same day Indications for Procedure: The patient is a 54-year-old female who was diagnosed with de Quervains tenosynovitis of the right wrist with an associated ganglion cyst. Treatment options (and associated risks and benefits) were discussed in the office. The patient expressed understanding and elected surgery treatment. Consent forms were signed. The surgical site was confirmed and marked preoperatively. Description of Procedure: The patient was brought to the operative suite and positioned supine with the operative limb on a hand table. A tourniquet was placed on the right arm. Anesthesia was administered uneventfully. A time-out was performed, confirming patient identifiers, the operative side, the site and the procedures to be performed: all team members expressed agreement. Using aseptic technique, local anesthetic was injected into the subcutaneous tissues around the planned incision. The right upper extremity was then prepped and draped in standard, sterile fashion. The limb was exsanguinated with an Esmarch and the tourniquet was inflated. Loupe magnification was utilized throughout the case for optimal visualization. A chevron incision was marked over the radial styloid. The skin was sharply incised. Blunt spreading dissection was used to expose the extensor retinaculum. Several small branches of the superficial radial sensory nerve were identified within the surgical field: These were carefully mobilized and protected throughout the case. The first dorsal compartment was identified. The cyst was visualized on the surface of the extensor retinaculum. The outcropper tendons were identified just distal to the extensor retinaculum. The first dorsal compartment was sharply released along its most dorsal aspect to prevent subluxation of the tendons. The retinaculum overlying the compartment was quite thickened. The tendons showed no fraying or attritional wear. A thin subsheath around the extensor pollicis brevis tendon was identified and released. A small amount of thickened tenosynovial tissue was identified between the tendons; this was carefully resected with a rongeur. The portion of the retinaculum containing the cyst was sharply excised in elliptical fashion and removed. To prevent volar subluxation, the retinaculum was loosely repaired over the tendons using [id number] sutures of 4-0 Monocryl. Passive motion testing was performed after repair: There was no tethering or restriction of tendon gliding. The tourniquet was released after 18 minutes at 250 mmHg. Excellent hemostasis was obtained with manual pressure. The wound was thoroughly irrigated with normal saline. The incision was closed with interrupted 5-0 nylon sutures. Additional local anesthetic with epinephrine was injected for postoperative pain control and adjunctive hemostasis. A sterile dressing was applied, followed by a short arm volar plaster splint. All sponge, needle and instrument counts were correct at the end of the case. The patient tolerated the procedure well and was taken to the recovery room in stable condition.
== END 2019-12-13 15:29 | disposition home or self-care (01) ==
LOC: OR 10:53
PROVIDERS: ATTEND Orthopaedic Surgery
DX: M65.4 Radial styloid tenosynovitis [de Quervain] (principal); M67.431 Ganglion, right wrist; E11.9 Type 2 diabetes mellitus without complications; F17.210 Nicotine dependence, cigarettes, uncomplicated; Z79.4 Long term (current) use of insulin; Z79.1 Long term (current) use of non-steroidal anti-inflammatories (NSAID); Z79.899 Other long term (current) drug therapy; Z88.0 Allergy status to penicillin; Z88.2 Allergy status to sulfonamides; Z91.013 Allergy to seafood; Z98.1 Arthrodesis status; Z96.41 Presence of insulin pump (external) (internal)
CPT/HCPCS: 25111; 25000; J2250; J2001; J2405; J3010; J2704

== ENCOUNTER → 2019-12-20 | Outpatient (CLI) | payer OTHER ==
[2019-12-20 16:42] LABS: Chol/HDL Ratio 3.2; LDL Cholesterol,Calculated 145.2 mg/dL (0.0-131.0); VLDL Calculation 28.8 mg/dL (5.00-40.00)
[2019-12-20 17:31] LABS: Hemoglobin A1C 8.5 % (4.0-6.0); Urine Creatinine 20.3 mg/dL
== END | disposition home or self-care (01) ==
LOC: LABWHC1 11:21
PROVIDERS: ATTEND Internal Medicine
DX: E10.65 Type 1 diabetes mellitus with hyperglycemia (principal)
CPT/HCPCS: 36415; 80061; 82043; 82570; 83036

== ENCOUNTER → 2020-04-24 | Outpatient (CLI) | payer OTHER ==
[2020-04-24 23:56] LABS: Hemoglobin A1C 7.7 % (4.0-6.0)
== END | disposition home or self-care (01) ==
LOC: LABWHC1 12:19
PROVIDERS: ATTEND Internal Medicine
DX: E10.65 Type 1 diabetes mellitus with hyperglycemia (principal)
CPT/HCPCS: 36415; 83036

== ENCOUNTER 2020-06-27 09:34 | Emergency (ER) | payer OTHER ==
[2020-06-27 09:38] VITALS: RESP 16
[2020-06-27] MEDS ORDERED: ONDANSETRON 4 MG/2 ML VIAL IVP STA (10:14)
[2020-06-27] MEDS ORDERED: HYDROmorphone 0.5 MG/0.5 ML SYRINGE IVP STA (10:14)
[2020-06-27] MEDS ORDERED: SODIUM CHLORIDE 0.9% 1,000 ML IV ONE (10:14)
[2020-06-27 10:40] LABS: Basophils # (A) 0.1 k/uL (0-0.2); Basophils % (A) 1 %; Eosinophils # (A) 0.2 k/uL (0-0.7); Eosinophils % (A) 2 %; HCT 43.7 % (34.0-46.0); HGB 14.2 gm/dL (11.4-16.0); Lymphocytes # (A) 2.7 k/uL (1.0-4.8); Lymphocytes % (A) 28 %; MCH 29.3 pg (25.0-35.0); MCHC 32.6 g/dL (31.0-37.0); MCV 89.9 fL (80.0-100.0); Mean Platelet Volume 7.6; Monocytes # (A) 0.5 k/uL (0-1.0); Monocytes % (A) 6 %; Neutrophils % (A) 62 %; Platelet Count 189 k/uL (150-450); RBC 4.86 m/uL (3.80-5.40); RDW 12.8 % (11.5-15.5); WBC 9.7 k/uL (3.8-10.6)
--- NOTE | 2020-06-27 10:48 | ED ---
General Adult HPI - General Chief complaint: Skin/Abscess/Foreign Body Stated complaint: cyst on back Time Seen by Provider: 06/27/20 10:05 Source: patient, RN notes reviewed Mode of arrival: ambulatory Limitations: no limitations - History of Present Illness Initial comments: 55-year-old female presents emergency Department chief complaint of cyst on her buttocks. Patient states his been increasing in size of last 2 weeks. Patient states is very painful and states that she cannot sit down because of pain. She does have some mild discomfort when swallowing bowel movements. Denies fevers chills she is known diabetic states her blood sugar has not been elevated. Patient denies fevers or chills no abdominal complaints denies any dysuria hematuria. - Related Data Home Medications Medication Instructions Recorded Confirmed Ibuprofen [Motrin] 800 mg PO TID PRN 06/25/19 12/13/19 Insulin Lispro [Admelog] 1 dose SQ CONTINUOUS 06/25/19 12/13/19 Loratadine [Claritin] 10 mg PO DAILY PRN 07/29/19 12/13/19 Previous Rx's Medication Instructions Recorded Clindamycin HCl 300 mg PO Q6HR #40 cap 06/27/20 Allergies Allergy/AdvReac Type Severity Reaction Status Date / Time Penicillins Allergy Rash/Hives Verified 06/27/20 09:34 shellfish derived [Shellfish] Allergy Swelling Verified 06/27/20 09:34 sulfamethoxazole Allergy Rash/Hives Verified 06/27/20 09:34 [From Bactrim] trimethoprim [From Bactrim] Allergy Rash/Hives Verified 06/27/20 09:34 Review of Systems ROS Statement: Those systems with pertinent positive or pertinent negative responses have been documented in the HPI. ROS Other: All systems not noted in ROS Statement are negative. Past Medical History Past Medical History: Diabetes Mellitus, Fibromyalgia, Hyperlipidemia Additional Past Medical History / Comment(s): left arm pain w/left hand numbness related to cervical fusion History of Any Multi-Drug Resistant Organisms: None Reported Past Surgical History: Appendectomy, Back Surgery, Orthopedic Surgery, Tubal Ligation Additional Past Surgical History / Comment(s): cervical fusion level 2,3,4 Past Anesthesia/Blood Transfusion Reactions: No Reported Reaction Smoking Status: Current every day smoker Past Alcohol Use History: None Reported Past Drug Use History: None Reported - Past Family History Mother Family Medical History: Cancer Father Family Medical History: Cancer General Exam Limitations: no limitations General appearance: alert, in no apparent distress Head exam: Present: atraumatic, normocephalic, normal inspection Respiratory exam: Present: normal lung sounds bilaterally, respiratory distress. Absent: wheezes, rales, rhonchi, stridor Cardiovascular Exam: Present: regular rate, normal rhythm, normal heart sounds. Absent: systolic murmur, diastolic murmur, rubs, gallop, clicks GI/Abdominal exam: Present: soft, normal bowel sounds. Absent: distended, tenderness, guarding, rebound, rigid Rectal exam: Present: other (There is approximate 2-3 cm abscess right perirectal region) Skin exam: Present: warm, dry, intact, normal color. Absent: rash Course Vital Signs 06/27/20 09:34 Temperature 98.4 F Pulse Rate 90 Respiratory 16 Rate Blood Pressure 125/82 O2 Sat by Pulse 100 Oximetry Medical Decision Making - Medical Decision Making 55-year-old presented for abscess buttocks region. CT is obtained which shows some changes along the skin with no definite abscess. Patient was placed on antibiotics and given a performed as there is no definite drainable area. She will follow with surgery provided pain medication. - Lab Data Result diagrams: 06/27/20 10:31 06/27/20 10:31 Lab Results 06/27/20 06/27/20 06/27/20 Range/Units 10:31 10:31 10:31 WBC 9.7 (3.8-10.6) k/uL RBC 4.86 (3.80-5.40) m/uL Hgb 14.2 (11.4-16.0) gm/dL Hct 43.7 (34.0-46.0) % MCV 89.9 (80.0-100.0) fL MCH 29.3 (25.0-35.0) pg MCHC 32.6 (31.0-37.0) g/dL RDW 12.8 (11.5-15.5) % Plt Count 189 (150-450) k/uL Neutrophils % 62 % Lymphocytes % 28 % Monocytes % 6 % Eosinophils % 2 % Basophils % 1 % Neutrophils # 6.0 (1.3-7.7) k/uL Lymphocytes # 2.7 (1.0-4.8) k/uL Monocytes # 0.5 (0-1.0) k/uL Eosinophils # 0.2 (0-0.7) k/uL Basophils # 0.1 (0-0.2) k/uL Sodium 139 (137-145) mmol/L Potassium 4.7 (3.5-5.1) mmol/L Chloride 108 H (98-107) mmol/L Carbon Dioxide 27 (22-30) mmol/L Anion Gap 4 mmol/L BUN 9 (7-17) mg/dL Creatinine 0.52 (0.52-1.04) mg/dL Est GFR (CKD-EPI)AfAm >90 (>60 ml/min/1.73 sqM) Est GFR (CKD-EPI)NonAf >90 (>60 ml/min/1.73 sqM) Glucose 120 H (74-99) mg/dL Plasma Lactic Acid Jaspreet 1.2 (0.7-2.0) mmol/L Calcium 9.5 (8.4-10.2) mg/dL Total Bilirubin 0.6 (0.2-1.3) mg/dL AST 29 (14-36) U/L ALT 19 (4-34) U/L Alkaline Phosphatase 75 (38-126) U/L Total Protein 6.9 (6.3-8.2) g/dL Albumin 4.2 (3.5-5.0) g/dL Disposition Clinical Impression: Perirectal cellulitis Disposition: HOME SELF-CARE Condition: Stable Instructions (If sedation given, give patient instructions): Abscess (ED) Additional Instructions: Please return to the Emergency Department if symptoms worsen or any other concerns. Prescriptions: RX: Clindamycin HCl 300 mg PO Q6HR #40 cap Is patient prescribed a controlled substance at d/c from ED?: No Referrals: Joao Byrd MD [Primary Care Provider] - 1-2 days Ac Winn MD [Medical Doctor] - 1-2 days Time of Disposition: 11:15
[2020-06-27 10:49] LABS: ALT 19 U/L (4-34); AST 29 U/L (14-36); African American GFR (CKD) >90 (>60 ml/min/1.73 sqM); Albumin 4.2 g/dL (3.5-5.0); Alkaline Phosphatase 75 U/L (38-126); Anion Gap 4 mmol/L; Blood Urea Nitrogen 9 mg/dL (7-17); Calcium 9.5 mg/dL (8.4-10.2); Carbon Dioxide 27 mmol/L (22-30); Chloride 108 mmol/L (98-107); Glucose 120 mg/dL (74-99); Non-African American GFR(CKD) >90 (>60 ml/min/1.73 sqM); Potassium 4.7 mmol/L (3.5-5.1); Sodium 139 mmol/L (137-145); Total Bilirubin 0.6 mg/dL (0.2-1.3); Total Protein 6.9 g/dL (6.3-8.2)
--- NOTE | 2020-06-27 10:56 | CT ---
EXAMINATION TYPE: CT pelvis wo con DATE OF EXAM: 06/27/2020 COMPARISON: None HISTORY: Perianal abscess CT DLP: 333.6 mGycm Automated exposure control for dose reduction was used. FINDINGS: Lack of contrast severely limits the exam. Severe degenerative disc disease L5-S1. Cystic changes involving the acetabulum on the right with bonnie ateral hip arthropathy. Uterus is prominent in size and there are large calcifications likely related to uterine fibroids. Tr jose cruz amount of free fluid in the pelvis. Correlation with short-term follow-up pelvic ultrasound recom mended. There is skin thickening along the perianal region measuring a diameter of 1.8 cm with adjace nt soft tissue edema. Could represent perianal phlegmon or developing abscess. IMPRESSION: SKIN THICKENING AND SOFT TISSUE EDEMA IN THE PERIANAL REGION POSTERIORLY MAY BE POSTINFECTIOUS AND RE PRESENT PERIANAL CELLULITIS WITH PHLEGMON OR DEVELOPING ABSCESS. CORRELATE CLINICALLY. PROBABLE CALCIFIED UTERINE FIBROIDS.
[2020-06-27] MEDS ORDERED: ACET/COD 300 MG/30 MG STARTER PACK 6 TAB BTL PO STA (11:14)
[2020-06-27] MEDS ORDERED: cefTRIAXone IN SWFI 1,000 MG/10 ML SYRINGE IVP STA (11:14)
[2020-06-27 11:30] VITALS: BP 111/68; PULSE 61; TEMP 98
== END 2020-06-27 11:29 | disposition home or self-care (01) ==
LOC: EC 09:34
DX: K61.1 Rectal abscess (principal); E11.9 Type 2 diabetes mellitus without complications; F17.200 Nicotine dependence, unspecified, uncomplicated; Z79.4 Long term (current) use of insulin; Z88.0 Allergy status to penicillin; Z88.2 Allergy status to sulfonamides; Z88.1 Allergy status to other antibiotic agents; Z91.013 Allergy to seafood
CPT/HCPCS: 99284; 96374; 96375 ×2; 96361; 36415; 80053; 83605; 85025; 72192; J2405; J0696; J1170

== ENCOUNTER → 2020-07-23 | Outpatient (CLI) | payer OTHER | END | disposition home or self-care (01) | LOC: LABWHC1 12:10 | PROVIDERS: ATTEND Internal Medicine | DX: E10.65 Type 1 diabetes mellitus with hyperglycemia (principal) | CPT/HCPCS: 36415; 83036 ==

== ENCOUNTER → 2020-10-22 | Outpatient (CLI) | payer OTHER ==
[2020-10-22 22:15] LABS: Hemoglobin A1C 7.6 % (4.0-6.0)
== END | disposition home or self-care (01) ==
LOC: LABWHC1 10:17
PROVIDERS: ATTEND Internal Medicine
DX: E10.65 Type 1 diabetes mellitus with hyperglycemia (principal)
CPT/HCPCS: 36415; 83036

== ENCOUNTER → 2021-01-20 | Outpatient (CLI) | payer OTHER ==
[2021-01-21 01:02] LABS: African American GFR (CKD) 97.6 (60.0-200.0); Anion Gap 7.6 mmol/L (4.00-12.00); BUN/Creat Ratio 12.5 Ratio (12.00-20.00); Carbon Dioxide 26.4 mmol/L (21.6-31.8); Chol/HDL Ratio 2.66; LDL Cholesterol,Calculated 127.8 mg/dL (0.0-131.0); Non-African American GFR(CKD) 84.2 (60.0-200.0); Potassium 4.7 mmol/L (3.5-5.5); VLDL Calculation 15.2 mg/dL (5.00-40.00)
[2021-01-21 01:23] LABS: Microalbumin Creatinine Ratio <30 mg/g Creat (0-30); Urine Creatinine 20.4 mg/dL
== END | disposition home or self-care (01) ==
LOC: LABWHC1 09:50
PROVIDERS: ATTEND Internal Medicine
DX: E10.65 Type 1 diabetes mellitus with hyperglycemia (principal)
CPT/HCPCS: 36415; 80048; 80061; 82043; 82570; 83036

== ENCOUNTER → 2021-05-06 | Outpatient (CLI) | payer OTHER ==
[2021-05-06 19:52] LABS: Hemoglobin A1C 7.9 % (4.0-6.0)
== END | disposition home or self-care (01) ==
LOC: LABWHC1 08:46
PROVIDERS: ATTEND Family Medicine
DX: E10.65 Type 1 diabetes mellitus with hyperglycemia (principal)
CPT/HCPCS: 36415; 82947; 83036

== ENCOUNTER → 2021-08-05 | Outpatient (CLI) | payer OTHER ==
[2021-08-05 16:39] LABS: Hemoglobin A1C 7.6 % (4.0-6.0)
== END | disposition home or self-care (01) ==
LOC: LABWHC1 10:14
PROVIDERS: ATTEND Family Medicine
DX: E10.65 Type 1 diabetes mellitus with hyperglycemia (principal)
CPT/HCPCS: 36415; 83036

== ENCOUNTER → 2021-11-17 | Outpatient (CLI) | payer OTHER ==
[2021-11-17 19:21] LABS: African American GFR (CKD) 113.8 (60.0-200.0); Calcium 9.5 mg/dL (8.7-10.3); Carbon Dioxide 24.8 mmol/L (20.0-27.5); Chloride 101 mmol/L (96-109); Chol/HDL Ratio 3.01 Ratio; Glucose 265 mg/dL (70-110); LDL Cholesterol,Calculated 111.6 mg/dL (0.0-131.0); Non-African American GFR(CKD) 98.2 (60.0-200.0); Potassium 4.4 mmol/L (3.5-5.5); Sodium 138 mmol/L (135-145)
[2021-11-17 23:54] LABS: Urine Creatinine 15.6 mg/dL (28.0-217.0)
== END | disposition home or self-care (01) ==
LOC: LABWHC1 13:12
PROVIDERS: ATTEND Family Medicine
DX: E10.65 Type 1 diabetes mellitus with hyperglycemia (principal)
CPT/HCPCS: 36415; 80048; 80061; 82043; 82570; 83036

== ENCOUNTER → 2022-08-05 | Outpatient (CLI) | payer OTHER | END | disposition home or self-care (01) | LOC: LABWHC1 11:49 | PROVIDERS: ATTEND Internal Medicine | DX: E10.65 Type 1 diabetes mellitus with hyperglycemia (principal) | CPT/HCPCS: 36415; 83036 ==

== ENCOUNTER 2023-04-02 11:19 | Emergency (ER) | payer OTHER ==
[2023-04-02 11:36] VITALS: RESP 16
--- NOTE | 2023-04-02 12:03 | ED ---
General Adult HPI - General Chief complaint: Upper Respiratory Infection Stated complaint: ear pain, facial pain/swelling, nasal congestion Time Seen by Provider: 04/02/23 11:39 Source: patient Mode of arrival: ambulatory Limitations: no limitations - History of Present Illness Initial comments: Patient is a 58-year-old female presenting with chief complaint of sinus congestion. Patient has had recurrent congestion and sinus pressure last 2 months. She is on her second round of doxycycline. She states that she has green nasal discharge. She admits to cough due to postnasal drip. No fevers or chills. No chest pain or difficulty breathing. No palpitations or weakness. - Related Data Home Medications Medication Instructions Recorded Confirmed Ibuprofen [Motrin] 800 mg PO TID PRN 06/25/19 12/13/19 Insulin Lispro [Admelog] 1 dose SQ CONTINUOUS 06/25/19 12/13/19 Loratadine [Claritin] 10 mg PO DAILY PRN 07/29/19 12/13/19 Previous Rx's Medication Instructions Recorded clindamycin HCL [Clindamycin HCl] 300 mg PO Q6HR #40 cap 06/27/20 Fexofenadine HCl 180 mg PO DAILY #20 tablet 04/02/23 Fexofenadine HCl 180 mg PO DAILY #20 tablet 04/02/23 Fluticasone Nasal [place] [Flonase 1 spray EA NOSTRIL DAILY #16 gm 04/02/23 Nasal [place]] Fluticasone Nasal [place] [Flonase 1 spray EA NOSTRIL DAILY #16 gm 04/02/23 Nasal [place]] Allergies Allergy/AdvReac Type Severity Reaction Status Date / Time Penicillins Allergy Rash/Hives Verified 06/27/20 09:34 shellfish derived [Shellfish] Allergy Swelling Verified 06/27/20 09:34 sulfamethoxazole Allergy Rash/Hives Verified 06/27/20 09:34 [From Bactrim] trimethoprim [From Bactrim] Allergy Rash/Hives Verified 06/27/20 09:34 Review of Systems ROS Statement: Those systems with pertinent positive or pertinent negative responses have been documented in the HPI. ROS Other: All systems not noted in ROS Statement are negative. Past Medical History Past Medical History: Diabetes Mellitus, Fibromyalgia, Hyperlipidemia Additional Past Medical History / Comment(s): left arm pain w/left hand numbness related to cervical fusion History of Any Multi-Drug Resistant Organisms: None Reported Past Surgical History: Appendectomy, Back Surgery, Orthopedic Surgery, Tubal Ligation Additional Past Surgical History / Comment(s): cervical fusion level 2,3,4 Past Anesthesia/Blood Transfusion Reactions: No Reported Reaction Past Psychological History: Anxiety Smoking Status: Current every day smoker Past Alcohol Use History: None Reported Past Drug Use History: None Reported - Past Family History Mother Family Medical History: Cancer Father Family Medical History: Cancer General Exam Limitations: no limitations General appearance: alert, in no apparent distress Head exam: Present: atraumatic, normocephalic, normal inspection Eye exam: Present: normal appearance, EOMI. Absent: scleral icterus, periorbital swelling ENT exam: Present: normal exam, normal oropharynx, mucous membranes moist, TM's normal bilaterally Neck exam: Present: normal inspection, full ROM Respiratory exam: Present: normal lung sounds bilaterally. Absent: respiratory distress, wheezes, rales, rhonchi, stridor Cardiovascular Exam: Present: regular rate, normal rhythm, normal heart sounds. Absent: systolic murmur, diastolic murmur, rubs, gallop, clicks Neurological exam: Present: alert, oriented X3, CN II-XII intact Psychiatric exam: Present: normal affect, normal mood Skin exam: Present: warm, dry, intact, normal color. Absent: rash Course Vital Signs 04/02/23 04/02/23 11:33 12:42 Temperature 98.3 F 98.4 F Pulse Rate 79 72 Respiratory 16 16 Rate Blood Pressure 135/83 136/82 O2 Sat by Pulse 98 Oximetry Medical Decision Making - Medical Decision Making Was pt. sent in by a medical professional or institution (, PA, PERISHABLE FREIGHT INSPECTOR, urgent c are, hospital, or [place] [facility] facility...) When possible be specific @ -No Did you speak to anyone other than the patient for history (EMS, parent, family, police, friend...)? What history was obtained from this source @ -No Did you review nursing and triage notes (agree or disagree)? Why? @ -I reviewed and agree with nursing and triage notes Were old charts reviewed (outside hosp., previous admission, EMS record, old EKG, old radiological studies, urgent care reports/EKG's, [place] [facility] facility records)? Report findings @ -No old charts were reviewed Differential Diagnosis (chest pain, altered mental status, abdominal pain women, abdominal pain men, vaginal bleeding, weakness, fever, dyspnea, syncope, headache, dizziness, GI bleed, back pain, seizure, CVA, palpatations, mental health, musculoskeletal)? @ -Differential includes sinusitis, headache, viral URI, this is not an all inclusive list EKG interpreted by me (3pts min.). @ -As above X-rays interpreted by me (1pt min.). @ -None done CT interpreted by me (1pt min.). @ -None done U/S interpreted by me (1pt. min.). @ -None done What testing was considered but not performed or refused? (CT, X-rays, U/S, labs)? Why? @ -None What meds were considered but not given or refused? Why? @ -None Did you discuss the management of the patient with other professionals (professionals i.e. , PA, PERISHABLE FREIGHT INSPECTOR, lab, RT, psych nurse, child welfare social worker, senior courtroom clerk, teacher, program officer, wrapper caser)? Give summary @ -No Was smoking cessation discussed for >3mins.? @ -No Was critical care preformed (if so, how long)? @ -No Were there social determinants of health that impacted care today? How? (Homelessness, low income, unemployed, alcoholism, drug addiction, transportation, low edu. Level, literacy, decrease access to med. care, snf, rehab)? @ -No Was there de-escalation of care discussed even if they declined (Discuss DNR or withdrawal of care, Hospice)? DNR status @ -No What co-morbidities impacted this encounter? (DM, HTN, Smoking, COPD, CAD, Cancer, CVA, ARF, Chemo, Hep., AIDS, mental health diagnosis, sleep apnea, morbid obesity)? @ -None Was patient admitted / discharged? Hospital course, mention meds given and route, prescriptions, significant lab abnormalities, going to OR and other pertinent info. @ -Patient is a 58-year-old female presenting with chief complaint of conges tion and sinus pressure. On physical examination normal HEENT exam. Patient is currently on her second round of doxycycline. Likely not due to bacterial sinusitis, patient is prescribed Flonase and Tracy. She is instructed to follow-up with ENT if symptoms persist. Follow-up with PCP. Report back to ER with any new or worsening symptoms. Discussed return parameters and answered all questions. Patient conveyed verbal understanding and agreed to the plan. I discussed this case in detail with my attending Dr. Bhagat Undiagnosed new problem with uncertain prognosis? @ -No Drug Therapy requiring intensive monitoring for toxicity (Heparin, Nitro, Insulin, Cardizem)? @ -No Were any procedures done? @ -No Diagnosis/symptom? @ -Sinusitis Acute, or Chronic, or Acute on Chronic? @ -Acute Uncomplicated (without systemic symptoms) or Complicated (systemic symptoms)? @ -Uncomplicated Side effects of treatment? @ -No Exacerbation, Progression, or Severe Exacerbation? @ -No Poses a threat to life or bodily function? How? (Chest pain, [place], [place], pneumonia, PE, COPD, DKA, ARF, appy, cholecystitis, CVA, Diverticulitis, Homicidal, Suicidal, threat to staff... and all critical care pts) @ -No Disposition Clinical Impression: Rhinosinusitis Disposition: HOME SELF-CARE Condition: Good Instructions (If sedation given, give patient instructions): Rhinosinusitis (ED) Additional Instructions: Follow-up with PCP and ENT. Report back to ER with any new or worsening symptoms. Take medications as prescribed. Prescriptions: Fexofenadine HCl 180 mg PO DAILY #20 tablet Fexofenadine HCl 180 mg PO DAILY #20 tablet Fluticasone Nasal [place] [Flonase Nasal Norton] 1 spray EA NOSTRIL DAILY #16 gm Fluticasone Nasal [place] [Flonase Nasal [place]] 1 spray EA NOSTRIL DAILY #16 gm Is patient prescribed a controlled substance at d/c from ED?: No Referrals: None,Stated [Primary Care Provider] - 1-2 days Usama Corey MD [STAFF PHYSICIAN] - 1-2 days Time of Disposition: 12:03
[2023-04-02 12:44] VITALS: BP 136/82; PULSE 72; TEMP 98.4
== END 2023-04-02 12:44 | disposition home or self-care (01) ==
LOC: EC 11:19
DX: J32.9 Chronic sinusitis, unspecified (principal); E11.9 Type 2 diabetes mellitus without complications; F41.9 Anxiety disorder, unspecified; F17.200 Nicotine dependence, unspecified, uncomplicated; Z88.0 Allergy status to penicillin; Z88.2 Allergy status to sulfonamides; Z91.013 Allergy to seafood; Z79.4 Long term (current) use of insulin; Z79.899 Other long term (current) drug therapy
CPT/HCPCS: 99283

== ENCOUNTER → 2023-07-20 | Outpatient (CLI) | payer OTHER ==
[2023-07-20 20:48] LABS: ALT 16 U/L (8-44); AST 22 U/L (13-35); Albumin 4.5 d/dL (3.8-4.9); Albumin/Globulin Ratio 2.25 Ratio (1.60-3.17); Alkaline Phosphatase 99 U/L (41-126); BUN/Creat Ratio 11.75 Ratio (12.00-20.00); Blood Urea Nitrogen 9.4 mg/dL (9.0-27.0); Calcium 9.5 mg/dL (8.7-10.3); Carbon Dioxide 23.9 mmol/L (21.6-31.8); Chloride 104 mmol/L (96-109); Chol/HDL Ratio 1.93 Ratio; Glucose 146 mg/dL (70-110); LDL Cholesterol,Calculated 86.6 mg/dL (0.0-131.0); Potassium 4.4 mmol/L (3.5-5.5); Sodium 140 mmol/L (135-145); Total Bilirubin 0.4 mg/dL (0.3-1.2); Total Protein 6.5 d/dL (6.2-8.2); VLDL Calculation 9.44 mg/dL (5.00-40.00)
[2023-07-20 21:38] LABS: Microalbumin Creatinine Ratio <14 mg/g Cr (0-30); Urine Creatinine 84.4 mg/dL (28.0-217.0)
== END | disposition home or self-care (01) ==
LOC: LABWHC1 12:33
PROVIDERS: ATTEND Internal Medicine
DX: E10.65 Type 1 diabetes mellitus with hyperglycemia (principal)
CPT/HCPCS: 36415; 80053; 80061; 82043; 82570; 83036

== ENCOUNTER → 2024-03-21 | Outpatient (CLI) | payer OTHER ==
[2024-03-21 19:07] LABS: ALT 12 U/L (8-44); AST 22 U/L (13-35); Albumin 4.6 g/dL (3.8-4.9); Alkaline Phosphatase 101 U/L (41-126); BUN/Creat Ratio 10.33 Ratio (12.00-20.00); Blood Urea Nitrogen 9.3 mg/dL (9.0-27.0); Calcium 9.9 mg/dL (8.7-10.3); Carbon Dioxide 24.9 mmol/L (21.6-31.8); Chloride 104 mmol/L (96-109); Chol/HDL Ratio 2.23 Ratio; Globulin 2.3 g/dL (1.6-3.3); Glucose 135 mg/dL (70-110); LDL Cholesterol,Calculated 97.1 mg/dL (0.0-131.0); Sodium 140 mmol/L (135-145); Total Bilirubin 0.4 mg/dL (0.3-1.2); Total Protein 6.9 g/dL (6.2-8.2)
[2024-03-21 22:11] LABS: Microalbumin Creatinine Ratio <30 mg/g Cr (0-30)
== END | disposition home or self-care (01) ==
LOC: LABWHC1 13:36
PROVIDERS: ATTEND Family Medicine
DX: E10.65 Type 1 diabetes mellitus with hyperglycemia (principal)
CPT/HCPCS: 36415; 80053; 80061; 82043; 82570; 83036

== ENCOUNTER 2024-08-02 13:59 | Emergency (ER) | payer OTHER ==
--- NOTE | 2024-08-02 14:09 | ED ---
URI HPI - General Stated Complaint: ANASTASIA Time Seen by Provider: 08/02/24 14:08 Source: patient, RN notes reviewed - History of Present Illness Initial Comments: 59-year-old female presents to the emergency department with a chief complaint of postnasal drip and mildly productive cough over the past 2 days. Patient states that yesterday when she woke up she had a sore throat and over the past day her sore throat has diminished however is experiencing a productive cough. Patient endorses nausea and coughing episodes arise. She denies fevers, chills, vomiting. Denies history of COPD or asthma. She has been taking vitamin C and Flonase over the past 2 days to alleviate symptoms. No other acute complaints at this time. - Related Data Home Medications Medication Instructions Recorded Confirmed Ibuprofen [Motrin] 800 mg PO TID PRN 06/25/19 12/13/19 Insulin Lispro [Admelog] 1 dose SQ CONTINUOUS 06/25/19 12/13/19 Loratadine [Claritin] 10 mg PO DAILY PRN 07/29/19 12/13/19 Previous Rx's Medication Instructions Recorded clindamycin HCL [Clindamycin HCl] 300 mg PO Q6HR #40 cap 06/27/20 Fexofenadine HCl 180 mg PO DAILY #20 tablet 04/02/23 Fexofenadine HCl 180 mg PO DAILY #20 tablet 04/02/23 Fluticasone Nasal [place] [Flonase 1 spray EA NOSTRIL DAILY #16 gm 04/02/23 Nasal [place]] Fluticasone Nasal [place] [Flonase 1 spray EA NOSTRIL DAILY #16 gm 04/02/23 Nasal [place]] predniSONE [Deltasone] 20 mg PO BID #10 tab 08/19/23 Benzonatate [Tessalon Perles] 100 mg PO TID PRN #15 capsule 08/02/24 Allergies Allergy/AdvReac Type Severity Reaction Status Date / Time Penicillins Allergy Rash/Hives Verified 06/27/20 09:34 shellfish derived [Shellfish] Allergy Swelling Verified 06/27/20 09:34 sulfamethoxazole Allergy Rash/Hives Verified 06/27/20 09:34 [From Bactrim] trimethoprim [From Bactrim] Allergy Rash/Hives Verified 06/27/20 09:34 Review of Systems ROS Statement: Those systems with pertinent positive or pertinent negative responses have been documented in the HPI. ROS Other: All systems not noted in ROS Statement are negative. Past Medical History Past Medical History: Diabetes Mellitus, Fibromyalgia, Hyperlipidemia Additional Past Medical History / Comment(s): left arm pain w/left hand numbness related to cervical fusion History of Any Multi-Drug Resistant Organisms: None Reported Past Surgical History: Appendectomy, Back Surgery, Orthopedic Surgery, Tubal Ligation Additional Past Surgical History / Comment(s): cervical fusion level 2,3,4 Past Anesthesia/Blood Transfusion Reactions: No Reported Reaction Past Psychological History: Anxiety Smoking Status: Current every day smoker Past Alcohol Use History: None Reported Past Drug Use History: None Reported - Past Family History Mother Family Medical History: Cancer Father Family Medical History: Cancer General Exam - General Exam Comments Initial Comments: Visual Physical Exam Vital signs reviewed General: Well-appearing, nontoxic, no acute distress. Head: Normocephalic, atraumatic Eyes: PERRLA, EOMI ENT: Airway patent Chest: Nonlabored breathing Skin: No visual rash, normal skin tone Neuro: Alert and oriented 3 Musculoskeletal: No gross abnormalities General appearance: alert, in no apparent distress Eye exam: Present: normal appearance, PERRL, EOMI. Absent: scleral icterus, conjunctival injection, periorbital swelling ENT exam: Present: normal exam, mucous membranes moist Neck exam: Present: normal inspection. Absent: tenderness, meningismus, lymphadenopathy Respiratory exam: Present: normal lung sounds bilaterally. Absent: respiratory distress, wheezes, rales, rhonchi, stridor Cardiovascular Exam: Present: regular rate, normal rhythm, normal heart sounds. Absent: systolic murmur, diastolic murmur, rubs, gallop, clicks GI/Abdominal exam: Present: soft, normal bowel sounds. Absent: distended, tenderness, guarding, rebound, rigid Extremities exam: Present: normal inspection, full ROM, normal capillary refill. Absent: tenderness, pedal edema, joint swelling, calf tenderness Back exam: Present: normal inspection Neurological exam: Present: alert, oriented X3, CN II-XII intact Skin exam: Present: warm, dry, intact, normal color. Absent: rash Course Vital Signs 08/02/24 08/02/24 15:17 18:00 Temperature 99.4 F 98.1 F Pulse Rate 78 79 Respiratory 16 16 Rate Blood Pressure 155/88 148/79 O2 Sat by Pulse 98 97 Oximetry Medical Decision Making - Medical Decision Making Was pt. sent in by a medical professional or institution (LINH Shaw, BELT MOLDER, urgent care, hospital, or retirement...) When possible be specific @ -No Did you speak to anyone other than the patient for history (EMS, parent, family, police, friend...)? What history was obtained from this source @ -No Did you review nursing and triage notes (agree or disagree)? Why? @ -I reviewed and agree with nursing and triage notes Were old charts reviewed (outside hosp., previous admission, EMS record, old EKG, old radiological studies, urgent care reports/EKG's, retirement records)? Report findings @ -No old charts were reviewed Differential Diagnosis (chest pain, altered mental status, abdominal pain women, abdominal pain men, vaginal bleeding, weakness, fever, dyspnea, syncope, headache, dizziness, GI bleed, back pain, seizure, CVA, palpatations, mental health, musculoskeletal)? @ -COVID 19, RSV, influenza, pneumonia, acute bronchitis, URI, this list is not all inclusive EKG interpreted by me (3pts min.). @ -None X-rays interpreted by me (1pt min.). @ -Chest x-ray no acute cardiopulmonary process or disease CT interpreted by me (1pt min.). @ -None done U/S interpreted by me (1pt. min.). @ -None done What testing was considered but not performed or refused? (CT, X-rays, U/S, labs)? Why? @ -None What meds were considered but not given or refused? Why? @ -None Did you discuss the management of the patient with other professionals (professionals i.e. LINH Shaw, BELT MOLDER, lab, RT, psych nurse, social sciences department chair, technical support analyst, teacher, forestry technical officer, oil field caser)? Give summary @ -No Was smoking cessation discussed for >3mins.? @ -No Was critical care preformed (if so, how long)? @ -No Were there social determinants of health that impacted care today? How? (Homelessness, low income, unemployed, alcoholism, drug addiction, transportation, low edu. Level, literacy, decrease access to med. care, skilled nursing, rehab)? @ -No Was there de-escalation of care discussed even if they declined (Discuss DNR or withdrawal of care, Hospice)? DNR status @ -No What co-morbidities impacted this encounter? (DM, HTN, Smoking, COPD, CAD, Cancer, CVA, ARF, Chemo, Hep., AIDS, mental health diagnosis, sleep apnea, morbid obesity)? @ -None Was patient admitted / discharged? Hospital course, mention meds given and route, prescriptions, significant lab abnormalities, going to OR and other pertinent info. @ -discharged. 59-year-old female with upper respiratory infection symptoms. On examination patient is resting comfortably no signs of acute distress. Patient is afebrile nontachycardic. Cardiopulmonary examination no acute findings. Chest x-ray negative for acute process. cephid is negative. Patient is provided with prescription for Tessalon Perles as cough suppressant. Symptoms are likely secondary to viral infection recommend she continues oral rehydration using Tylenol Motrin at home for symptomatic relief. All questions answered at bedside and strict return prior discussed with the patient she is verbalized understanding. Case discussed with Dr. De Anda. Undiagnosed new problem with uncertain prognosis? @ -No Drug Therapy requiring intensive monitoring for toxicity (Heparin, Nitro, Insulin, Cardizem)? @ -No Were any procedures done? @ -No Diagnosis/symptom? @ -cough, upper respiratory infection Acute, or Chronic, or Acute on Chronic? @ -Acute Uncomplicated (without systemic symptoms) or Complicated (systemic symptoms)? @ -uncomplicated Side effects of treatment? @ -No Exacerbation, Progression, or Severe Exacerbation? @ -No Poses a threat to life or bodily function? How? (Chest pain, [place], [place], pneumonia, PE, COPD, DKA, ARF, appy, cholecystitis, CVA, Diverticulitis, Homicidal, Suicidal, threat to staff... and all critical care pts) @ -No - Lab Data Lab Results 08/02/24 Range/Units 16:31 Influenza Type A (PCR) Not Detected (Not Detectd) Influenza Type B (PCR) Not Detected (Not Detectd) RSV (PCR) Not Detected (Not Detectd) SARS-CoV-2 (PCR) Not Detected (Not Detectd) Disposition Clinical Impression: Viral infection, Sinusitis Disposition: HOME SELF-CARE Condition: Good Instructions (If sedation given, give patient instructions): Upper Respiratory Infection (ED) Additional Instructions: Return to the emergency department for any new or worsening symptoms. Recommend they continue Tylenol Motrin at home for symptomatic relief. Increase oral rehydration. Follow-up with your primary care provider next week for further evaluation. Prescriptions: Benzonatate [Tessalon Perles] 100 mg PO TID PRN #15 capsule PRN Reason: Cough Is patient prescribed a controlled substance at d/c from ED?: No Referrals: None,Stated [Primary Care Provider] - 1-2 days Time of Disposition: 17:38
[2024-08-02 15:19] VITALS: RESP 16
--- NOTE | 2024-08-02 15:58 | XR ---
EXAMINATION TYPE: XR chest 2V DATE OF EXAM: 08/02/2024 COMPARISON: 08/19/2023 HISTORY: Productive cough TECHNIQUE: Frontal and lateral views of the chest are obtained. FINDINGS: There is no focal air space opacity, pleural effusion, or pneumothorax seen. The cardiac silhouette size is within normal limits. The osseous structures are intact. IMPRESSION: No acute cardiopulmonary process. [facility] Workstation: [email or web address] 08/02/2024 3:55 PM
[2024-08-02 18:02] VITALS: BP 148/79; PULSE 79; TEMP 98.1
== END 2024-08-02 18:02 | disposition home or self-care (01) ==
LOC: EC 13:59
CPT/HCPCS: 71046; 87636; 99283

== ENCOUNTER 2025-01-11 10:54 | Emergency (ER) | payer OTHER ==
[2025-01-11 11:02] VITALS: TEMP 98.2
[2025-01-11] MEDS: ORPHENADRINE 30 MG/ML 2 ML VIAL IM STA (11:43)
[2025-01-11] MEDS: KETOROLAC 15 MG/ML 1 ML VIAL IM STA (11:43)
[2025-01-11] MEDS: LIDOCAINE 4% PATCH TOPICAL ONE (11:43)
--- NOTE | 2025-01-11 11:58 | ED ---
Back Pain HPI - General Chief Complaint: Back Pain/Injury Stated Complaint: back pain Time Seen by Provider: 01/11/25 11:06 Source: patient, EMS, RN notes reviewed Mode of arrival: ambulatory Limitations: no limitations - History of Present Illness Initial Comments: This is a 59-year-old female with history of DM and fibromyalgia presenting via EMS with left low back pain/injury (08/29) x 6 days. She was moving a dresser on Monday with progressively worsening back pain since that time. Patient states she is having pain running to her left foot and is unable to ambulate or bear weight on left leg due to the pain. Endorses use of Motrin 800, ice and massage with minimal relief. Denies saddle paresthesia or urinary incontinence/retention. MD Complaint: back pain, back injury Onset/Timin -: days(s) Place: home Radiation: left leg Severity scale (1-10): 10 Consistency: constant Improves With: immobilization Worsens With: movement, sitting upright, walking Context: while lifting Associated Symptoms: denies other symptoms Treatments Prior to Arrival: cold therapy, NSAIDS - Related Data Home Medications Medication Instructions Recorded Confirmed Ibuprofen [Motrin] 800 mg PO TID PRN 06/25/19 12/13/19 Insulin Lispro [Admelog] 1 dose SQ CONTINUOUS 06/25/19 12/13/19 Loratadine [Claritin] 10 mg PO DAILY PRN 07/29/19 12/13/19 Previous Rx's Medication Instructions Recorded clindamycin HCL [Clindamycin HCl] 300 mg PO Q6HR #40 cap 06/27/20 Fexofenadine HCl 180 mg PO DAILY #20 tablet 04/02/23 Fexofenadine HCl 180 mg PO DAILY #20 tablet 04/02/23 Fluticasone Nasal [place] [Flonase 1 spray EA NOSTRIL DAILY #16 gm 04/02/23 Nasal [place]] Fluticasone Nasal [place] [Flonase 1 spray EA NOSTRIL DAILY #16 gm 04/02/23 Nasal [place]] predniSONE [Deltasone] 20 mg PO BID #10 tab 08/19/23 Benzonatate [Tessalon Perles] 100 mg PO TID PRN #15 capsule 08/02/24 Cyclobenzaprine [Flexeril] 5 mg PO TID PRN #15 tablet 01/11/25 Lidocaine 4% Patch 1 patch TOPICAL Q24H PRN #10 patch 01/11/25 Allergies Allergy/AdvReac Type Severity Reaction Status Date / Time Penicillins Allergy Rash/Hives Verified 01/11/25 11:02 shellfish derived [Shellfish] Allergy Swelling Verified 01/11/25 11:02 sulfamethoxazole Allergy Rash/Hives Verified 01/11/25 11:02 [From Bactrim] trimethoprim [From Bactrim] Allergy Rash/Hives Verified 01/11/25 11:02 Review of Systems ROS Statement: Those systems with pertinent positive or pertinent negative responses have been documented in the HPI. ROS Other: All systems not noted in ROS Statement are negative. Past Medical History Past Medical History: Diabetes Mellitus, Fibromyalgia, Hyperlipidemia Additional Past Medical History / Comment(s): left arm pain w/left hand numbness related to cervical fusion History of Any Multi-Drug Resistant Organisms: None Reported Past Surgical History: Appendectomy, Back Surgery, Orthopedic Surgery, Tubal Ligation Additional Past Surgical History / Comment(s): cervical fusion level 2,3,4 Past Anesthesia/Blood Transfusion Reactions: No Reported Reaction Past Psychological History: Anxiety Smoking Status: Current every day smoker Past Alcohol Use History: None Reported Past Drug Use History: None Reported - Past Family History Mother Family Medical History: Cancer Father Family Medical History: Cancer General Exam Limitations: no limitations General appearance: alert, in no apparent distress Head exam: Present: atraumatic, normocephalic, normal inspection Eye exam: Present: normal appearance, PERRL, EOMI. Absent: scleral icterus, conjunctival injection, periorbital swelling ENT exam: Present: normal exam, mucous membranes moist Neck exam: Present: normal inspection. Absent: tenderness, meningismus, lymphadenopathy Respiratory exam: Present: normal lung sounds bilaterally. Absent: respiratory distress, wheezes, rales, rhonchi, stridor Cardiovascular Exam: Present: regular rate, normal rhythm, normal heart sounds. Absent: systolic murmur, diastolic murmur, rubs, gallop, clicks GI/Abdominal exam: Present: soft, normal bowel sounds. Absent: distended, tenderness, guarding, rebound, rigid Extremities exam: Present: normal inspection, full ROM, normal capillary refill, other (Bilateral posterior tibialis pulse +2). Absent: tenderness, pedal edema, joint swelling, calf tenderness Back exam: Present: normal inspection, paraspinal tenderness (Positive left paralumbar muscle spasm and point tenderness). Absent: vertebral tenderness Neurological exam: Present: alert, oriented X3, CN II-XII intact Psychiatric exam: Present: normal affect, normal mood Skin exam: Present: warm, dry, intact, normal color. Absent: rash Course Vital Signs 01/11/25 10:55 Temperature 98.2 F Pulse Rate 102 H Respiratory 18 Rate Blood Pressure 158/97 O2 Sat by Pulse 98 Oximetry Medical Decision Making - Medical Decision Making Was pt. sent in by a medical professional or institution (, PA, JOIST SETTER, urgent care, hospital, or senior care...) When possible be specific @ -[No] Did you speak to anyone other than the patient for history (EMS, parent, family, police, friend...)? What history was obtained from this source @ -[No] Did you review nursing and triage notes (agree or disagree)? Why? @ -[I reviewed and agree with nursing and triage notes] Were old charts reviewed (outside hosp., previous admission, EMS record, old EKG, old radiological studies, urgent care reports/EKG's, senior care records)? Report findings @ -[No old charts were reviewed] Differential Diagnosis (chest pain, altered mental status, abdominal pain women, abdominal pain men, vaginal bleeding, weakness, fever, dyspnea, syncope, headache, dizziness, GI bleed, back pain, seizure, CVA, palpatations, mental health, musculoskeletal)? @ -Differential Musculoskeletal Muscular strain, contusion, ligament sprain, fracture, arthritis, septic arthritis, bursitis, cellulitis, muscle spasm, nerve compression, DVT, arterial occlusion, herpes zoster, electrolyte abnormality, tumor.... This is not meant to be in all inclusive list EKG interpreted by me (3pts min.). @ -Not done X-rays interpreted by me (1pt min.). @ -[None done] CT interpreted by me (1pt min.). @ -[None done] U/S interpreted by me (1pt. min.). @ -[None done] What testing was considered but not performed or refused? (CT, X-rays, U/S, labs)? Why? @ -[None] What meds were considered but not given or refused? Why? @ -Solu-Medrol and prednisone considered but deferred, with patient stating bl ood glucose levels raise into 500s with use Did you discuss the management of the patient with other professionals (professionals i.e. , PA, JOIST SETTER, lab, RT, psych nurse, social media content manager, paint spray inspector, teacher, network security officer, gearcase assembler)? Give summary @ -[No] Was smoking cessation discussed for >3mins.? @ -[No] Was critical care preformed (if so, how long)? @ -[No] Were there social determinants of health that impacted care today? How? (Homelessness, low income, unemployed, alcoholism, drug addiction, transportation, low edu. Level, literacy, decrease access to med. care, retirement, rehab)? @ -[No] Was there de-escalation of care discussed even if they declined (Discuss DNR or withdrawal of care, Hospice)? DNR status @ -[No] What co-morbidities impacted this encounter? (DM, HTN, Smoking, COPD, CAD, C ancer, CVA, ARF, Chemo, Hep., AIDS, mental health diagnosis, sleep apnea, morbid obesity)? @ -[None] Was patient admitted / discharged? Hospital course, mention meds given and route, prescriptions, significant lab abnormalities, going to OR and other pertinent info. @ -[hospital course] Undiagnosed new problem with uncertain prognosis? @ -[No] Drug Therapy requiring intensive monitoring for toxicity (Heparin, Nitro, Insulin, Cardizem)? @ -[No] Were any procedures done? @ -[No] Diagnosis/symptom? @ -Sciatica with radiculopathy Acute, or Chronic, or Acute on Chronic? @ -Acute Uncomplicated (without systemic symptoms) or Complicated (systemic symptoms)? @ -Uncomplicated Side effects of treatment? @ -[No] Exacerbation, Progression, or Severe Exacerbation? @ -[No] Poses a threat to life or bodily function? How? (Chest pain, [place], [place], pneumonia, PE, COPD, DKA, ARF, appy, cholecystitis, CVA, Diverticulitis, Homicidal, Suicidal, threat to staff... and all critical care pts) @ -[No] Disposition Clinical Impression: Sciatica, Lumbar radiculopathy Disposition: HOME SELF-CARE Condition: Good Instructions (If sedation given, give patient instructions): Sciatica (ED), Lumbar Radiculopathy (ED) Additional Instructions: Follow-up with PCP/orthopedics for ongoing management of sciatic pain Prescriptions: Cyclobenzaprine [Flexeril] 5 mg PO TID PRN #15 tablet PRN Reason: Muscle Spasm Lidocaine 4% Patch 1 patch TOPICAL Q24H PRN #10 patch PRN Reason: Pain Is patient prescribed a controlled substance at d/c from ED?: No Referrals: None,Stated [Primary Care Provider] - 1-2 days Whitney Heredia DO [Doctor of Osteopathic Medicine] - 1-2 days Time of Disposition: 12:54
[2025-01-11] MEDS: HYDROmorphone 0.5 MG/0.5 ML SYRINGE IM STA (12:53)
--- NOTE | 2025-01-11 13:41 | XR ---
EXAMINATION TYPE: XR lumbosacral spine min 4V DATE OF EXAM: 01/11/2025 12:26 PM COMPARISON: None. CLINICAL INDICATION: Female, 59 years old with history of Low back pain with left-sided radiculopathy , pain TECHNIQUE: 5 view(s) obtained. FINDINGS: There are 5 lumbar-type vertebral bodies. Pedicles are intact. Facet degenerative changes are present . No spondylolytic defects are evident Vertebral body heights are preserved. Disc heights are preserved. Mild degenerative disc changes are in the lower lumbar spine. IMPRESSION: 1. Mild facet degenerative changes lumbar spine [facility], , 01/11/2025 1:38 PM
--- NOTE | 2025-01-11 13:46 | ED ---
Back Pain HPI - General Chief Complaint: Back Pain/Injury Stated Complaint: back pain Time Seen by Provider: 01/11/25 11:06 Source: patient, EMS Limitations: no limitations - History of Present Illness Initial Comments: This is a 59-year-old female with history of DM and fibromyalgia presenting via EMS with left low back pain/injury (08/29) x 6 days. She was moving a dresser on Monday with progressively worsening back pain since that time. Patient states she is having pain running to her left foot and is unable to ambulate or bear weight on left leg due to the pain. Endorses use of Motrin 800, ice and massage with minimal relief. Denies saddle paresthesia or urinary incontinence/retention. Onset/Timin -: days(s) Similar Symptoms Previously: No Place: home Radiation: left leg Severity scale (1-10): 10 Improves With: immobilization Worsens With: movement, sitting upright, walking Context: while lifting Associated Symptoms: denies other symptoms Treatments Prior to Arrival: cold therapy, NSAIDS - Related Data Home Medications Medication Instructions Recorded Confirmed Ibuprofen [Motrin] 800 mg PO TID PRN 06/25/19 12/13/19 Insulin Lispro [Admelog] 1 dose SQ CONTINUOUS 06/25/19 12/13/19 Loratadine [Claritin] 10 mg PO DAILY PRN 07/29/19 12/13/19 Previous Rx's Medication Instructions Recorded clindamycin HCL [Clindamycin HCl] 300 mg PO Q6HR #40 cap 06/27/20 Fexofenadine HCl 180 mg PO DAILY #20 tablet 04/02/23 Fexofenadine HCl 180 mg PO DAILY #20 tablet 04/02/23 Fluticasone Nasal [place] [Flonase 1 spray EA NOSTRIL DAILY #16 gm 04/02/23 Nasal [place]] Fluticasone Nasal [place] [Flonase 1 spray EA NOSTRIL DAILY #16 gm 04/02/23 Nasal [place]] predniSONE [Deltasone] 20 mg PO BID #10 tab 08/19/23 Benzonatate [Tessalon Perles] 100 mg PO TID PRN #15 capsule 08/02/24 Cyclobenzaprine [Flexeril] 5 mg PO TID PRN #15 tablet 01/11/25 Lidocaine 4% Patch 1 patch TOPICAL Q24H PRN #10 patch 01/11/25 Allergies Allergy/AdvReac Type Severity Reaction Status Date / Time Penicillins Allergy Rash/Hives Verified 01/11/25 11:02 shellfish derived [Shellfish] Allergy Swelling Verified 01/11/25 11:02 sulfamethoxazole Allergy Rash/Hives Verified 01/11/25 11:02 [From Bactrim] trimethoprim [From Bactrim] Allergy Rash/Hives Verified 01/11/25 11:02 Review of Systems ROS Statement: Those systems with pertinent positive or pertinent negative responses have been documented in the HPI. ROS Other: All systems not noted in ROS Statement are negative. Past Medical History Past Medical History: Diabetes Mellitus, Fibromyalgia, Hyperlipidemia Additional Past Medical History / Comment(s): left arm pain w/left hand numbness related to cervical fusion History of Any Multi-Drug Resistant Organisms: None Reported Past Surgical History: Appendectomy, Back Surgery, Orthopedic Surgery, Tubal Ligation Additional Past Surgical History / Comment(s): cervical fusion level 2,3,4 Past Anesthesia/Blood Transfusion Reactions: No Reported Reaction Past Psychological History: Anxiety Smoking Status: Current every day smoker Past Alcohol Use History: None Reported Past Drug Use History: None Reported - Past Family History Mother Family Medical History: Cancer Father Family Medical History: Cancer General Exam Limitations: no limitations General appearance: alert, in no apparent distress Head exam: Present: atraumatic, normocephalic, normal inspection Eye exam: Present: normal appearance, PERRL, EOMI. Absent: scleral icterus, conjunctival injection, periorbital swelling ENT exam: Present: normal exam, mucous membranes moist Neck exam: Present: normal inspection. Absent: tenderness, meningismus, lymphadenopathy Respiratory exam: Present: normal lung sounds bilaterally. Absent: respiratory distress, wheezes, rales, rhonchi, stridor Cardiovascular Exam: Present: regular rate, normal rhythm, normal heart sounds. Absent: systolic murmur, diastolic murmur, rubs, gallop, clicks GI/Abdominal exam: Present: soft, normal bowel sounds. Absent: distended, tenderness, guarding, rebound, rigid Extremities exam: Present: normal inspection, full ROM, normal capillary refill, other (Bilateral posterior tibialis pulse +2). Absent: tenderness, pedal edema, joint swelling, calf tenderness Back exam: Present: normal inspection, paraspinal tenderness (Left paralumbar muscle spasm point tenderness). Absent: vertebral tenderness Neurological exam: Present: alert, oriented X3, CN II-XII intact Psychiatric exam: Present: normal affect, normal mood Skin exam: Present: warm, dry, intact, normal color. Absent: rash Course Vital Signs 01/11/25 10:55 Temperature 98.2 F Pulse Rate 102 H Respiratory 18 Rate Blood Pressure 158/97 O2 Sat by Pulse 98 Oximetry Medical Decision Making - Medical Decision Making Was pt. sent in by a medical professional or institution (, PA, MORTGAGE LOAN COUNSELOR, urgent care, hospital, or [facility]...) When possible be specific @ -No Did you speak to anyone other than the patient for history (EMS, parent, family, police, friend...)? What history was obtained from this source @ -No Did you review nursing and triage notes (agree or disagree)? Why? @ -I reviewed and agree with nursing and triage notes Were old charts reviewed (outside hosp., previous admission, EMS record, old EKG, old radiological studies, urgent care reports/EKG's, [facility] records)? Report findings @ -No old charts were reviewed Differential Diagnosis (chest pain, altered mental status, abdominal pain women, abdominal pain men, vaginal bleeding, weakness, fever, dyspnea, syncope, headache, dizziness, GI bleed, back pain, seizure, CVA, palpatations, mental health, musculoskeletal)? @ -Differential Musculoskeletal Muscular strain, contusion, ligament sprain, fracture, arthritis, septic arthritis, bursitis, cellulitis, muscle spasm, nerve compression, DVT, arterial occlusion, herpes zoster, electrolyte abnormality, tumor.... This is not meant to be in all inclusive list EKG interpreted by me (3pts min.). @ -Not done X-rays interpreted by me (1pt min.). @ -Lumbar spine x-ray shows mild facet degenerative changes. CT interpreted by me (1pt min.). @ -None done U/S interpreted by me (1pt. min.). @ -None done What testing was considered but not performed or refused? (CT, X-rays, U/S, labs)? Why? @ -None What meds were considered but not given or refused? Why? @ -Use of Solu-Medrol and prednisone considered but deferred by patient due to significant hyperglycemia associated with use. Did you discuss the management of the patient with other professionals (professionals i.e. , PA, MORTGAGE LOAN COUNSELOR, lab, RT, psych nurse, social sciences department chair, hose tender, teacher, us customs and border officer, window caser)? Give summary @ -No Was smoking cessation discussed for >3mins.? @ -No Was critical care preformed (if so, how long)? @ -No Were there social determinants of health that impacted care today? How? (Homelessness, low income, unemployed, alcoholism, drug addiction, transportation, low edu. Level, literacy, decrease access to med. care, [facility], rehab)? @ -No Was there de-escalation of care discussed even if they declined (Discuss DNR or withdrawal of care, Hospice)? DNR status @ -No What co-morbidities impacted this encounter? (DM, HTN, Smoking, COPD, CAD, Cancer, CVA, ARF, Chemo, Hep., AIDS, mental health diagnosis, sleep apnea, morbid obesity)? @ -DM Was patient admitted / discharged? Hospital course, mention meds given and route, prescriptions, significant lab abnormalities, going to OR and other pertinent info. @ -Lumbar spine x-ray shows mild facet degenerative changes. Patient initially provided IM Toradol, Norflex and lidocaine patch, reducing pain from 10/10 to 8/10. IM Dilaudid provided due to ongoing pain with relief noted by patient. Flexeril and lidocaine patches sent to patient's pharmacy. Patient discharged with T3 starter pack and advised follow-up with orthospine. Discussed patient with Dr. Cruz. Undiagnosed new problem with uncertain prognosis? @ -No Drug Therapy requiring intensive monitoring for toxicity (Heparin, Nitro, Insulin, Cardizem)? @ -No Were any procedures done? @ -No Diagnosis/symptom? @ -Sciatica with radiculopathy Acute, or Chronic, or Acute on Chronic? @ -Acute Uncomplicated (without systemic symptoms) or Complicated (systemic symptoms)? @ -Uncomplicated Side effects of treatment? @ -No Exacerbation, Progression, or Severe Exacerbation? @ -No Poses a threat to life or bodily function? How? (Chest pain, [place], [place], pneumonia, PE, COPD, DKA, ARF, appy, cholecystitis, CVA, Diverticulitis, Homicidal, Suicidal, threat to staff... and all critical care pts) @ -No Disposition Clinical Impression: Sciatica, Lumbar radiculopathy Disposition: HOME SELF-CARE Condition: Good Instructions (If sedation given, give patient instructions): Sciatica (ED), Lum bar Radiculopathy (ED) Additional Instructions: Follow-up with PCP/orthopedics for ongoing management of sciatic pain Prescriptions: Cyclobenzaprine [Flexeril] 5 mg PO TID PRN #15 tablet PRN Reason: Muscle Spasm Lidocaine 4% Patch 1 patch TOPICAL Q24H PRN #10 patch PRN Reason: Pain Is patient prescribed a controlled substance at d/c from ED?: No Referrals: Whitney Heredia, [Doctor of Osteopathic Medicine] - 1-2 days None,Stated [Primary Care Provider] - 1-2 days Time of Disposition: 13:46
[2025-01-11] MEDS: ACET/COD 300 MG/30 MG STARTER PACK 6 TAB BTL PO STA (14:08)
[2025-01-11 14:11] VITALS: BP 141/81; PULSE 76; RESP 17
== END 2025-01-11 14:11 | disposition home or self-care (01) ==
LOC: EC 10:54
DX: M54.16 Radiculopathy, lumbar region (principal); M54.42 Lumbago with sciatica, left side; E11.9 Type 2 diabetes mellitus without complications; F17.200 Nicotine dependence, unspecified, uncomplicated; Z88.0 Allergy status to penicillin; Z88.2 Allergy status to sulfonamides; Z88.1 Allergy status to other antibiotic agents; Z91.013 Allergy to seafood
CPT/HCPCS: 99284; 96372 ×3; 72110; J2360; J1885; J1171

== ENCOUNTER → 2025-04-07 | Outpatient (CLI) | payer OTHER ==
[2025-04-07 16:52] LABS: BUN/Creat Ratio 11.88 Ratio (12.00-20.00); Blood Urea Nitrogen 9.5 mg/dL (9.0-27.0); Chol/HDL Ratio 2.43 Ratio; Glucose 208 mg/dL (70-110); LDL Cholesterol,Calculated 94.5 mg/dL (0.0-131.0)
[2025-04-07 16:53] LABS: ALT 25 U/L (8-44); AST 30 U/L (13-35); Albumin 4.2 g/dL (3.8-4.9); Albumin/Globulin Ratio 1.83 Ratio (1.60-3.17); Alkaline Phosphatase 94 U/L (41-126); Calcium 9.4 mg/dL (8.7-10.3); Carbon Dioxide 23.4 mmol/L (21.6-31.8); Chloride 104 mmol/L (96-109); Globulin 2.3 g/dL (1.6-3.3); Potassium 4.6 mmol/L (3.5-5.5); Sodium 139 mmol/L (135-145); Total Bilirubin 0.2 mg/dL (0.3-1.2); Total Protein 6.5 g/dL (6.2-8.2)
[2025-04-07 20:42] LABS: Microalbumin Creatinine Ratio <35 mg/g Cr (0-30)
== END | disposition home or self-care (01) ==
LOC: LABWHC1 12:03
PROVIDERS: ATTEND Nurse Practitioner Gerontology
DX: E10.65 Type 1 diabetes mellitus with hyperglycemia (principal); E78.5 Hyperlipidemia, unspecified
CPT/HCPCS: 36415; 80053; 80061; 82043; 82570; 83036